=== PATIENT | male | born 1950 | race Caucasian/White ===

== ENCOUNTER 2016-10-19 12:30 | Observation (INO) | payer OTHER ==
[2016-10-19] MEDS ORDERED: Thiamine IV* 100 MG, Folic Acid IV* 1 MG, Multiple Vitamin IV ADULT* 10 ML in NS 0.9% 1... IV ONE (13:09)
[2016-10-19 13:33] LABS: Hematocrit 42 % (42-52); Hemoglobin 14.5 g/dl (14.0-18.0); Mean Corpuscular HGB Conc 34 g/dl (31-36); Mean Corpuscular Hemoglobin 31 pg (27-31); Mean Corpuscular Volume 91 fL (80-94); Mean Platelet Volume 8 um3 (7.4-10.4); Red Blood Count 4.64 10^6/ul (4.0-5.4); Red Cell Distribution Width 13 % (10.5-15); White Blood Count 7.2 10^3/ul (3.5-10.8)
--- NOTE | 2016-10-19 13:41 | RAD ---
Indication: Diplopia for 40 minutes this morning. Now just dizziness. Comparison: No relevant prior exams available on the [facility] PACS for comparison. Technique: Noncontrast CT vertex of skull through foramen magnum. Report: Unremarkable cerebral sulci, ventricles, and basal cisterns for age. Variant persistent cavum septum pellucidum. 3 mm prominent perivascular space at the RIGHT frontal lobe adjacent to the frontal horn of the lateral ventricle. Negative for ornelas matter white matter obscuration, intra or extra-axial hemorrhage, or mass effect. Unremarkable orbital contents. Negative for suspicious calvarial or skull base lesions. Partially visualized mucous retention cyst or polyp in the posterior aspect of the LEFT maxillary sinus. No paranasal sinus fluid levels within the [id number]. Clear mastoid air spaces. Unremarkable scalp. IMPRESSION: No evidence for acute intrathoracic disease.
[2016-10-19 14:20] LABS: Albumin 3.7 g/dL (3.2-5.2); BUN/Creatinine Ratio 15.8 (8-20); Calcium 9.7 mg/dL (8.6-10.3); EGFR Non-African American 79.3 (>60); Globulin 3.2 g/dL (2-4); Potassium 4.1 mmol/L (3.5-5.0); Total Bilirubin 0.5 mg/dL (0.2-1.0); Total Protein 6.9 g/dL (6.4-8.9)
[2016-10-19 14:23] LABS: Urine Bilirubin Negative (Negative); Urine Glucose Negative (Negative); Urine Nitrite Negative (Negative)
[2016-10-19] MEDS ORDERED: Iohexol 350* (CONTRAST) 500 ML MDV IV ONE (14:26)
[2016-10-19 14:28] LABS: TSH (Thyroid Stimulating Horm) 1.17 mcIU/mL (0.34-5.60)
--- NOTE | 2016-10-19 15:30 | RAD ---
HISTORY: Diplopia COMPARISONS: Head CT dated October 19, 2016 TECHNIQUE: Multiple contiguous axial CT scans were obtained of the head and neck After the administration of nonionic intravenous contrast timed to the systemic arterial phase of contrast enhancement. Coronal and sagittal multiplanar reformations are submitted for review. Multiple 3-D maximum intensity projection reconstructions are also submitted for review. FINDINGS: CTA NECK: AORTIC ARCH: There is a normal three-vessel branching pattern of the aortic arch. There is no ostial or proximal stenosis of the cephalic great vessels. RIGHT VERTEBRAL ARTERY: The right vertebral artery is patent along its course, without stenosis. LEFT VERTEBRAL ARTERY: The left vertebral artery is patent along its course, without stenosis. DOMINANCE: The vertebral arteries are codominant. RIGHT COMMON CAROTID ARTERY: The right common carotid artery is patent. The right carotid bifurcation occurs at C4-C5 RIGHT INTERNAL CAROTID ARTERY: There is atheromatous disease of the right carotid bifurcation, without right internal carotid artery stenosis by NASCET criteria. RIGHT EXTERNAL CAROTID ARTERY: The right external carotid artery is unremarkable. LEFT COMMON CAROTID ARTERY: The left common carotid artery is patent. The left carotid bifurcation occurs at C4-C5 LEFT INTERNAL CAROTID ARTERY: There is atheromatous disease of the left carotid bifurcation, without left internal carotid artery stenosis by NASCET criteria. LEFT EXTERNAL CAROTID ARTERY: The left external carotid artery is unremarkable. VENOUS CIRCULATION: The venous system is unremarkable. SALIVARY GLANDS: The parotid glands, submandibular glands, sublingual glands are normal. NASAL CAVITY/NASOPHARYNX: The nasal cavity and nasopharynx are normal. ORAL CAVITY/OROPHARYNX: The oral cavity is obscured by streak artifact from dental amalgam. The visualized oral cavity and oropharynx are unremarkable. LARYNGEAL APPARATUS/HYPOPHARYNX: The laryngeal apparatus and hypopharynx are normal. UPPER AIRWAY/UPPER ESOPHAGUS: The visualized upper airway and esophagus are normal. LUNG APICES: The lung apices are clear. THYROID GLAND: There is a 1.6 cm right thyroid nodule LYMPH NODES: There is no lymphadenopathy by size criteria. BONES AND SOFT TISSUES: Degenerative changes are noted CTA HEAD: INTRACRANIAL CIRCULATION: There is no aneurysm, vascular malformation, occlusion, or stenosis of the visualized intracranial circulation. The anterior communicating artery complex is clear. Bilateral posterior communicating arteries are identified. VENOUS CIRCULATION: The venous system is unremarkable. PERFUSION: There is no obvious parenchymal perfusion deficit. HEMORRHAGE/INFARCT: There is no hemorrhage or acute infarct. MASSES/SHIFT: There is no mass or shift. EXTRA-AXIAL SPACES: There are no extra-axial fluid collections. SULCI AND VENTRICLES: The sulci and ventricles are normal in size and position for the patient's stated age. CEREBRUM: There are no focal parenchymal abnormalities. BRAINSTEM: There are no focal parenchymal abnormalities. CEREBELLUM: There are no focal parenchymal abnormalities. PARANASAL SINUSES: The paranasal sinuses are clear. ORBITS: The orbits are unremarkable. BONES AND SOFT TISSUE: No bone or soft tissue abnormalities are noted. OTHER: There is no abnormal enhancement. IMPRESSION: 1. NO INTERNAL CAROTID ARTERY STENOSIS BY NASCET CRITERIA. 2. NO ANEURYSM, VASCULAR MALFORMATION, OCCLUSION, OR STENOSIS OF THE VISUALIZED INTRACRANIAL CIRCULATION.. 3. RIGHT THYROID NODULE. RECOMMEND CONSIDERATION OF CORRELATION WITH DEDICATED IMAGING OF THE THYROID IN THE NONACUTE SETTING CPT II Codes: 3100F
[2016-10-19] MEDS ORDERED: Aspirin TAB* 325 MG PO ONE (15:52)
[2016-10-19] MEDS ORDERED: Famotidine TAB* 20 MG PO PRN (16:36)
[2016-10-19] MEDS ORDERED: Zolpidem TAB* 5 MG PO PRN (16:36)
[2016-10-19] MEDS ORDERED: NS 0.9% 1000 ML* 1,000 ML IV SCH (17:00)
[2016-10-19 17:56] LABS: Erythrocyte Sed Rate 27 mm/Hr (0-40)
--- NOTE | 2016-10-19 18:59 | RAD ---
Indication: Transient ischemic attack. Sagittal and axial T1, axial T2, FLAIR, diffusion and susceptibility weighted images of the brain were obtained. Ventricular structures are midline. No midline shift is noted. There is central and cortical atrophy noted. There is a cavum septum interpositum noted. No restriction of diffusion is identified. FLAIR images demonstrates periventricular signal abnormalities consistent with chronic ischemic White matter change. There is no evidence of intracranial mass or hemorrhage. No other high or low density lesions are identified. IMPRESSION: CHRONIC ISCHEMIC WHITE MATTER CHANGE. NO INTRACRANIAL MASS OR HEMORRHAGE IS NOTED. NO ACUTE INFARCT IS NOTED.
--- NOTE | 2016-10-19 20:49 | CONS ---
NEUROLOGY CONSULTATION: DATE OF CONSULT: 10/19/16 REFERRING PHYSICIAN: Dr. Feliz. PRIMARY CARE PROVIDER: Dr. Malone. CHIEF COMPLAINT: Double vision. HISTORY OF PRESENT ILLNESS: Gilmer Coelho is a 66-year-old right-handed [facility], who was in his usual state of health today about 10 a.m. looking at his computer in his office. He realized he could not read what was on it. Things seemed to be jumbled, they were double. He got up and went to the bathroom and then to the faculty lounge, but the double vision did not resolve. It was side- by-side and people had "2 heads." He decided that he would go home and he went out to the parking lot, on his way there again, everybody he looked at seemed to be double. Again, it seemed [id number]. By the time, he got to the car, it seemed to have resolved, lasted anywhere from 20 to 30 minutes. He noticed a "water like" scotoma to the left of his visual field. That lasted about 5 or 10 minutes and went away. At that point, he drove home. He did not have any headache other than some persistent occipital and nuchal neck pain, which he has had for months. He has felt fine since that episode. There is no prior history of double vision, cerebrovascular disease, or transient ischemic attacks. PAST MEDICAL HISTORY: Notable for hyperlipidemia and intolerance to statins. He has had pretty severe muscular leg pain and then had a more recent retrial with Crestor and developed pain of his thoracic muscles. He had an elevated CPK a couple of weeks ago when Crestor was stopped about 16 days ago. 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 MEDICATIONS: At home consist of: 1. Ranitidine 150 mg p.o. q. day. 2. Glucosamine chondroitin. 3. Alfuzosin. ALLERGIES: He is allergic to SULFA, which caused a rash; intolerant to statins , which caused myalgias and elevated CPKs. FAMILY HISTORY: Notable for mother suffering a stroke, father at age 39 of an [place]. SOCIAL HISTORY: He is a nonsmoker, drinks red wine daily. He lifts weights on a regular basis. REVIEW OF SYSTEMS: Negative for recent illnesses. No problems with numbness in his limbs or face. No history of migraines, but he does have history of neck pain and stiffness, which he attributes to when he developed severe myalgias with the statins. No intestinal problems or recent weight loss. No recent fevers or illnesses. PHYSICAL EXAM: He is well nourished and well hydrated. Temperature 97.4 temporally, blood pressure running about 120 to 140 systolic over 60 to 74 diastolic. Heart rate is about 70 and sinus on the monitor, respiratory rate 14 , and oxygen saturation is 98% on room air. Skin is warm and dry. Neck is supple, but there is limited rotation bilaterally. Heart is in a regular rate and rhythm without murmurs. Carotid pulses are symmetrical and there are no anterior or posterior cervical bruits. Lungs are clear to auscultation bilaterally. On motor exam, pupils are unequal with the right being about 6 mm, 4 mm o the left in dark room light, both constricting to about 2.5 mm. There is a mild ptosis of the left eye, which appears fixed. Eye movements are normal and there is no nystagmus. Visual fernández are full to confrontation. Funduscopic exam is normal and I do not see any embolic phenomena. Facial musculature is intact and symmetric and facial sensation to light touch and temperature is symmetric. Palate and tongue appear normal and there is no dysarthria. Hearing is intact. Neck strength is intact. Motor exam reveals muscle tone and strength proximally and distally in upper and lower extremities. There is no pronator drift. Alyttz-pu-ehbw maneuver and finger taps are normal bilaterally. Vbxi-kl-awop maneuver is normal bilaterally. Sensory exam in the limbs is intact to temperature, vibration, light touch. Romberg sign is absent. Gait and station are normal. Tandem gait is normal. He is alert and oriented and an excellent detailed historian. Memory is intact and language is fluent. He has good attention, concentration, and fund of knowledge. DIAGNOSTIC STUDIES/LAB DATA: Includes CT scan of the brain, which I reviewed the images and is interpreted as normal. CT angiogram of the brain was also obtained and I reviewed that and that is interpreted as normal as well. He does have a cavum septum pellucidum. Other laboratory data includes a normal CBC, normal chemistry profile other than nonfasting glucose of 109. INR is 0.99. IMPRESSION AND PLAN: Impression is that of about 30 minutes of horizontal diplopia worrisome for brain stem transient ischemic attack. 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 I think he should be admitted to the hospital for TIA workup. Specifically, I think he should have an MRI of the brain, an echocardiogram, and telemetry for at least overnight. Recommend starting aspirin therapy today. I discussed with Dr. Feliz asking him to initiate the first aspirin. Fasting lipid profile should be ordered for the morning. Currently, his blood pressure is in a good range and I would not recommend any alterations acutely. Further recommendations will depend on his hospital course and the results of his studies. [id number]/[facility] #: [id number] BRANDI
--- NOTE | 2016-10-19 21:23 | HP ---
AMENDED REPORT NOW INCLUDES COSIGNER DESIGNATION - ESIGNED BEFORE ADJUSTMENT CC: Sami Stern MD * ADMISSION HISTORY AND PHYSICAL: DATE OF ADMISSION: 10/19/16 PRIMARY CARE DOCTOR: Sami Stern MD. MY ATTENDING WHILE IN THE HOSPITAL: Anish Carney MD * (iDICTATED BY CIPRIANO MANNING) CHIEF COMPLAINT: Double vision for half an hour. HISTORY OF PRESENT ILLNESS: The patient states that at about 10:10 this morning , he had an episode of horizontal diplopia with some dizziness and walking into doorways. The patient is unsure if dizziness is independent of the diplopia or caused by it. This lasted about 30 minutes and then cleared up, but afterwards the patient states that there was scotoma in his right visual field similar to water shimmering. The patient states he has normal morning headaches with neck stiffness and decreased range of motion every day and he had one of those headaches today. Patient denies any different or additional headaches. The patient states that he has been fatigued for 3 days. The patient denies fevers , chills, or sick contacts. The patient started taking ferrous gluconate 3 days ago because he was not feeling well. The patient denies any word finding difficulties, but states it was awkward when he was speaking to people, but states that it could be because he was perceiving 2 heads for those people. The patient states he was nauseous with diplopia. PAST MEDICAL HISTORY: 1. Hyperlipidemia. 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 PAST SURGICAL HISTORY: Removal of aforementioned tumor in 1997. MEDICATIONS: 1. Zolpidem 5 mg as needed for insomnia. The patient states he takes this 3 times a week. 2. Ranitidine 150 mg as needed for heartburn. The patient states he takes this occasionally. 3. Glucosamine and chondroitin vitamin C 1 tab p.o. daily. 4. Ferrous gluconate 1 tab p.o. daily. ALLERGIES: SULFA ANTIBIOTICS. FAMILY HISTORY: The patient's father, mother and maternal grandfather all had myocardial infarctions. The patient's mother had AFib with a pacemaker implant. The patient's brother had hypertension, hyperlipidemia. The patient's paternal grandfather had cirrhosis from longtime drinking. SOCIAL HISTORY: The patient has a remote history of smoking, he quit in the 80s , cannot quantify pack-year history. The patient drinks 750 mL of red wine daily and this has been going on for a "long time." The patient denies any illicit drug use. 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 The patient is for 44 years, lives with his who wants to be his healthcare proxy. The patient has 4 children. REVIEW OF SYSTEMS: The patient denies vomiting. The patient denies chest pain , shortness of breath, palpitations, swelling of the legs, abdominal pain, change in urination. The patient states that he has arthritis all over his body , particularly in his spine. The patient states he has been under more stress than normal recently. PHYSICAL EXAMINATION GENERAL: The patient is a 66-year-old male who is in excellent physical condition who appears stated age and sitting comfortably on the stretcher in the ED. VITAL SIGNS: Blood pressure 147/98, heart rate 63, temperature 97.4, respiratory rate 13, oxygen saturation 96% on room air. HEENT: Head nontraumatic, normocephalic. Sclerae anicteric. Pharynx: Nonerythematous. Mucosa moist. NECK: Supple. No lymphadenopathy. Range of motion to 90 degrees, both left and right rotation. RESPIRATORY: Lungs clear to auscultation bilaterally. No wheezes, rales, or rhonchi. Good air exchange bilaterally. CARDIAC: Regular rate and rhythm. S1, S2 present. No clicks, murmurs, gallops , or rubs. Radial dorsalis pedis and posterior tibial pulses all +2 bilaterally. ABDOMEN: Soft, nontender, nondistended. Bowel sounds present in all 4 quadrants. No abdominal bruits heard. No hepatosplenomegaly. GENITOURINARY: No CVA tenderness. No suprapubic tenderness. NEURO: Cranial nerves II through XII intact. Distal and proximal strength 5/5 bilaterally in the upper and lower extremities. Sensation to light touch intact without extinction. Hvrndw-ml-cmev, glpd-ef-umbm and rapid alternating movements all normal. Normal gait. Reflexes 1+ in the bilateral biceps and quadriceps tendon. LABORATORY DATA/DIAGNOSTIC STUDIES: White blood cell 7.2, hemoglobin 14.5, hematocrit 42. INR 0.99. Sodium 135, potassium 4.1, chloride 102, carbon dioxide 26, creatinine 0.95, BUN 15, glucose 109, lactic acid 0.9, troponin 0.00. Urine: Benign findings. Head CTA: No internal carotid artery stenosis. No aneurysm, vascular malformation, occlusion or stenosis. Thyroid nodule indicates dedicated imaging in a nonacute setting. Brain CT: No evidence of acute intracranial disease. EKG: Normal sinus rhythm with a type 1 A-V block. No ischemia noted. IMPRESSION: The patient is a 66-year-old healthy male with 30 minutes of horizontal diplopia earlier today, possible transient ischemic attack. We will admit for telemetry monitoring and analysis of risk factors. 1. Horizontal diplopia, possible transient ischemic attack: The patient has hyperlipidemia and is intolerant of statins. We will do brain MRI to assess for brainstem ischemia. We will do an ESR and Lyme panel to rule out other causes of gallbladder dysfunction such as infiltrative process. We will repeat lipid panel in the morning and get a transthoracic echocardiogram tonight to assess for predisposition for atrial fibrillation. 2. Hyperlipidemia. The patient is statin intolerant, would consider alternative therapy outpatient. 3. Alcohol abuse: Started on [facility] protocol for possible alcohol withdrawal. 3. DVT prophylaxis. The patient is at moderate risk and fully ambulatory. We will order SCDs while in bed. 4. FEN. Heart healthy diet. Caffeine okay. Normal saline at 75 mL an hour. 5. Code status: Full code. The patient would like the healthcare proxy to be his , Donnell Coelho. 6. Disposition: The patient is admitted OBV. TIME SPENT: Approximately 40 minutes were spent on this admission, 20 of which was spent kjyk-jv-dqow with the patient obtaining history and physical. This case has been discussed with my attending, Dr. Carney, and he is in agreement with this plan. CIPRIANO MANNING [id number]/[facility] #: [id number] BRANDI
[2016-10-20] MEDS ORDERED: Aspirin TAB* 325 MG PO SCH (09:00)
--- NOTE | 2016-10-20 10:14 | CONS ---
CC: Dr. Stern NEUROLOGY FOLLOWUP NOTE: DATE OF FOLLOWUP: 10/20/16 LOCATION: He is an inpatient in room 439. CHIEF COMPLAINT: Double vision. INTERVAL HISTORY: Since yesterday, Gilmer felt well. He has not had any recurrences of double vision or any other neurological symptoms. He has persistent neck stiffness but nothing else and nothing going on for months. His laboratory studies have all been unremarkable including TSH. His cholesterol is elevated at 259 and LDL 181. MEDICATIONS: Medications reviewed. He is on, 1. Aspirin, which he received 325 mg yesterday. 2. Ambien 5 mg p.o. q.h.s. p.r.n. insomnia. 3. Famotidine 20 mg p.o. daily. PHYSICAL EXAMINATION: He has been afebrile throughout his hospital stay. Most recent blood pressur e 150/82. Gilmer was otherwise not examined. DIAGNOSTIC STUDIES/LAB DATA: Reviewing laboratory studies today, he has had a negative CT angiogram of the head and neck and a negative CT of the brain. I have reviewed his MR images and there are a few punctate white matter lesions consistent with chronic ischemic changes but are nonspecific. Th ere is no diffusion abnormalities to suggest acute infarction including a close look at the brain st em. He had an echocardiogram earlier today and the report is pending. IMPRESSION: Brain stem transient ischemic attack. I would recommend he remain on aspirin 81 mg per day at discharge. If his echocardiogram in telemetry remains normal, then he could go home. Recom mended a 30-day outpatient cardiac nurse specialist to look for intermittent atrial fibrillation. He has bee n intolerant of statins, and I will ask Dr. Stern if there is anything that might be worth trying to address his hyperlipidemia further. He will be seen in my office in followup in a few weeks if noth ing develops from a cardiac perspective between now and discharge. [id number]/[facility] #: [id number]
--- NOTE | 2016-10-20 10:43 | ECHO ---
Patient: SANTA CHENG [facility] Rec#: [id number] : 1950 Date: 10/20/2016 Age: 66y Height: 167.6 cm / 66.0 in Weight: 82.6 kg / 182.1 lbs Sex: M BSA: 1.9 Room#: 439 Admit Date#: 10/19/2016 Type: Inpatient Referring: Connor Hassan MD Reading: Eugenie Parrish MD Cement Mason Helper: Sharron Elliott RN RDCS CC: Sami Stern MD Transthoracic Echocardiogram Indication: TIA BP: 131/82 HR: 62 Rhythm: NSR with PACs Findings History: HLD, paraganglionic tumor of carotid bifurcation, ETOH use, former smoker Technical Comments: The study quality is fair. The study is technically limited due to patient body habitus. Completed at 0925. Left Ventricle: The left ventricular chamber size is normal. Mild to moderate concentric left ventricular hypertrophy is observed. Global left ventricular wall motion and contractility are within normal limits. There is normal left ventricular systolic function. The estimated ejection fraction is 55-60%. Normal left ventricular diastolic filling is observed. Left Atrium: The left atrial chamber size is normal. Right Ventricle: The right ventricle wall thickness is mildly increased. The right ventricular cavity size is normal. The right ventricular global systolic function is normal. Right Atrium: The right atrial cavity size is normal. The interatrial septum appears lipomatous. Aortic Valve: The aortic valve is trileaflet. The aortic valve leaflets are mildly thickened. There is a trace of aortic regurgitation. There is no evidence of aortic stenosis. Mitral Valve: Mild mitral annular calcification present. The mitral valve leaflets are mildly thickened. There is mild mitral regurgitation. There is no evidence of mitral stenosis. Tricuspid Valve: The tricuspid valve leaflets are normal. There is trace to mild tricuspid regurgitation. No pulmonary hypertension is noted. There is no tricuspid stenosis. Pulmonic Valve: The pulmonic valve appears normal. There is mild pulmonic regurgitation. There is no pulmonic stenosis. Pericardium: There is no significant pericardial effusion. Aorta: There is mild dilatation of the ascending aorta. There is no dilatation of the aortic arch. The aortic root is normal in size. Pulmonary Artery: The main pulmonary artery appears normal. Venous: The inferior vena cava appears normal in size. There is a greater than 50% respiratory change in the inferior vena cava dimension. Conclusions Mild to moderate concentric left ventricular hypertrophy is observed. There is normal left ventricular systolic function. The estimated ejection fraction is 55-60%. Normal left ventricular diastolic filling is observed. The right ventricular global systolic function is normal. No evidence of intracardiac shunting by color Doppler. There is a trace of aortic regurgitation. There is mild mitral regurgitation. There is trace to mild tricuspid regurgitation. No prior echo to compare. Measurements Name Value Normal Range RVIDd (AP) 2D 2.7 cm (0.9 - 2.6) RVDdMajor (2D) 3.6 cm (2.2 - 4.4) RVAW (2D) 0.6 cm (0.2 - 0.5) RAd ISD 4CH 4.9 cm (3.4 - 4.9) RA (A4C)W 4 cm (2.9 - 4.6) IVSd (2D) 1.5 cm (0.6 - 1) LVPWd (2D) 1.3 cm (0.6 - 1) LVIDd (2D) 4.5 cm (3.6 - 5.4) LVIDs (2D) 3.1 cm - LV FS (2D) 32 % (25 - 45) Aortic Annulus 2.2 cm (1.4 - 2.6) Ao root diameter (2D) 3.3 cm (2.1 - 3.5) Ascending Ao 3.8 cm (2.1 - 3.4) Aortic arch 2.6 cm (1.8 - 3.4) LA dimension (AP) 2D 3.3 cm (2.3 - 3.8) LAd ISD 4CH 4.7 cm (2.9 - 5.3) LA ISD 4CH W 4.3 cm (2.5 - 4.5) Name Value Normal Range LA ESV SP 4CH (A/L) 53 ml - LA ESV SP 2CH (A/L) 52 ml - LA ESV BP (A/L) 55 ml - LA ESV BP (A/L) index 28.7 ml/m2 - LA ESV SP 4CH (MOD) 48 ml - LA ESV SP 2CH (MOD) 49 ml - Name Value Normal Range MV E-wave Vmax 1 m/sec - MV deceleration time 158 msec - MV A-wave Vmax 0.59 m/sec - MV E:A ratio 1.8 ratio - LV septal e' Vmax 0.1 m/sec - LV lateral e' Vmax 0.1 m/sec - LV E:e' septal ratio 10 ratio - LV E:e' lateral ratio 10 ratio - Name Value Normal Range AV Vmax 1.3 m/sec - AV VTI 28.6 cm - AV peak gradient 6.7 mmHg - AV mean gradient 4.7 mmHg - LVOT Vmax 0.84 m/sec - LVOT VTI 18 cm - LVOT peak gradient 2.8 mmHg - LVOT mean gradient 1.7 mmHg - KRISTI Vmax 0.63 m/sec - Name Value Normal Range TR Vmax 2.6 m/sec - TR peak gradient 27 mmHg - RAP 3 mmHg - RVSP 30 mmHg - IVC diameter 1.6 cm - Name Value Normal Range PV Vmax 0.6 m/sec -
[2016-10-20 13:56] VITALS: BP 142/78
--- NOTE | 2016-10-21 06:29 | DS ---
CC: Dr. Sami Stern; Dr. Pierre * DISCHARGE SUMMARY: DATE OF ADMISSION: 10/19/16 DATE OF DISCHARGE: 10/20/16 PRIMARY CARE PROVIDER: Dr. Sami Stern CONSULTING NEUROLOGIST: Dr. Bunny Pierre DISCHARGING PROVIDER: CIPRIANO Atkinson SUPERVISING PHYSICIAN: Dr. Lee Gray * (DICTATED BY CIPRIANO ATKINSON) PRIMARY DISCHARGE DIAGNOSES: 1. Transient ischemic attack. 2. Hypertension. 3. Hyperlipidemia with intolerance of statins. DISCHARGE MEDICATIONS: 1. Aspirin 81 mg p.o. daily. 2. Ferrous gluconate 240 mg p.o. daily. 3. Glucosamine/chondroitin and vitamin C one tablet p.o. daily. 4. Lisinopril 10 mg p.o. daily. 5. Ranitidine 150 mg p.o. daily. 6. Ambien 5 mg p.o. at bedtime. Medication changes: 1. Start aspirin. 2. Start lisinopril. HOSPITAL IMAGIN. CT of the brain shows no acute process. 2. CTA of the head shows no significant carotid stenosis. No aneurysm, AVM, occlusion, or stenosis of the visualized portion of the intracranial circulation. There is a right thyroid nodule measuring approximately 6 mm, requiring further outpatient followup. 3. MRI of the brain demonstrates chronic ischemic white matter changes, but no intracranial mass or hemorrhage noted. No acute infarct. 4. Transthoracic echocardiogram shows [id number] LVH with normal left ventricular ejection fraction of 55% to 60% without significant valvular disease. HOSPITAL COURSE: This is a 66-year-old gentleman with known hyperlipidemia with significant intolerance of statins, who presented to the emergency department after approximately a 30-minute episode of diplopia and dizziness and some visual field disturbance. The patient was at work earlier in the day when he experienced vertical diplopia describing people as having "2 heads." He experienced some dizziness associated with that. No speech changes or weakness or confusion per his report. After resolution of the diplopia, he had several minutes of a right visual field disturbance, where he said that it had a kind of wavy water filled appearance. Symptoms resolved spontaneously and he proceeded to the emergency department for further evaluation. Initial labs including a CBC, comprehensive metabolic panel, troponin, magnesium, and lactic acid were unremarkable. TSH was within normal limits and the urinalysis was normal. Initial CT of the brain showed no acute process and subsequent CTA failed to show any significant stenosis. Neurology was consulted in the emergency department, who recommended admission for likely TIA and further evaluation. The patient underwent MRI of the brain, which demonstrated chronic ischemic white matter changes, but no evidence of acute infarct. He remained asymptomatic throughout his hospital stay. No changes on telemetry. He underwent an echocardiogram, which showed mild-to- moderate LVH, but no significant valvular disease and bubble study was negative. The patient was noted to be vtbr-us-oluydpbrgo hypertensive throughout his hospital stay with systolic pressures measuring between 130 and 155 mmHg. Based on the description of the patient's acute event, this most likely represented a TIA. Given the presence of LVH on echocardiogram, the patient likely has longstanding hypertension and recommended starting an antihypertensive for additional risk reduction for secondary stroke prevention. The patient was also started on aspirin therapy and when discussing his hyperlipidemia treatment history, he reports severe intolerance to at least 3 different statins, he can name atorvastatin and Crestor and is unsure of the third. With each of these, he experienced severe myalgias and at least with the Crestor had documented elevated CPK. The patient had a fasting lipid profile, which demonstrated a total cholesterol of 259 and LDL of 181. Given his LDL being significantly above goal and recent TIA, he may be an appropriate candidate for a PCSK9 inhibitor to reduce his LDL given his obvious statin intolerance. DISPOSITION AND FOLLOWUP PLAN: The patient is being discharged to home with medication changes as outlined above. Recommend close followup with his primary care provider to discuss this hospital stay and also to discuss initiating process for prior authorization for a PCSK9 inhibitor for better lipid control. Dr. Pierre's office will also help to arrange a 30-day event monitor to further evaluate for presence of paroxysmal atrial fibrillation, which may have contributed to his symptoms. The patient was started on lisinopril at the time discharge. The patient was given a lab slip for repeat basic metabolic panel to evaluate potassium and renal function in approximately 1 week, this should be followed up by his primary care provider. CIPRIANO ATKINSON [id number]/[facility] #: [id number] BRANDI
--- NOTE | 2016-10-22 18:04 | ED ---
Angel Pino SooYoung, scribed for Miguel Ngo MD on 10/19/16 at 1246 . Dizziness - HPI Summary HPI Summary: A 66 y/o M presents to ED with dizziness onset approx 1000. Associated sx: double vision and blurriness in both eyes since resolved. Pt was at his office and couldn't read the computer screen because it was too blurry. Vision problems lasted approx 40 minutes. He's unsure if his gait was steady, but notes bumping into a post. He drove home, but his vision was still blurry, described as a "pond of water" in his vision. Pt got home and rested and that helped him. Pt wears glasses. PMHx: high cholesterol, iliopsoas tendonitis, muscle spasms. PCP is Dr. Stern. Stopped taking statin meds on 10/02/[address] Stern's request. Daily ETOH. Non-smoker. - History Of Current Complaint Chief Complaint: EDDizziness Stated Complaint: DOUBLE VISION Time Seen by Provider: 10/19/16 12:44 Hx Obtained From: Patient, Family/Braiding Operator, Medical Records Onset/Duration: Resolved - vision changes Timing: Constant Severity Initially: Moderate Severity Currently: Mild - 2 out of 10 Associated Signs And Symptoms: Positive: Unsteady Gait, Visual Changes - Allergies/Home Medications Allergies/Adverse Reactions: Allergies Allergy/AdvReac Type Severity Reaction Status Date / Time Sulfa Antibiotics Allergy Unknown Verified 10/19/16 12:47 Reaction Details Home Medications: Home Medications Ferrous Gluconate 240 mg PO DAILY 10/19/16 [History Confirmed 10/19/16] Qqwtourbuyx-Rsbywhhfyfx-Ovo C- [Glucosamine Chondroitin] 1 tab PO DAILY [History Confirmed 10/19/16] Ranitidine TAB (NF) [Zantac TAB (NF)] 150 mg PO DAILY PRN 10/19/16 [History Confirmed 10/19/16] PMH/Surg Hx/FS Hx/Imm Hx Previously Healthy: Yes Endocrine/Hematology History: Denies: Hx Diabetes, Hx Thyroid Disease Cardiovascular History: Denies: Hx Hypertension Respiratory History: Denies: Hx Asthma, Hx Chronic Obstructive Pulmonary Disease (COPD), Other Respiratory Problems/Disorders GI History: Denies: Hx Ulcer Musculoskeletal History: Denies: Hx Osteoporosis - Surgical History Surgery Procedure, Year, and Place: carotid artery tumor removed - benign Infectious Disease History: Denies: Hx Clostridium Difficile, Hx Hepatitis, Hx Human Immunodeficiency Virus (HIV), Hx of Known/Suspected MRSA, Hx Shingles, Hx Tuberculosis, Traveled Outside the [place] in Last 30 Days - Family History Known Family History: Positive: Cardiac Disease, Hypertension - mother, younger brother, Diabetes - maternal great grandmother - Social History Occupation: Employed Full-time Lives: With Family Alcohol Use: Occasionally Hx Substance Use: No Substance Use Type: Reports: None Hx Tobacco Use: No Smoking Status (MU): Never Smoked Tobacco Review of Systems Negative: Fever Positive: Blurred Vision, Diplopia Neurological: Other - unsteady gait Psychological: Other - pos: dizziness All Other Systems Reviewed And Are Negative: Yes Physical Exam Triage Information Reviewed: Yes Vital Signs On Initial Exam: Initial Vitals Temp Pulse Resp BP Pulse Ox 97.4 F 78 16 135/92 99 10/19/16 12:31 10/19/16 12:31 10/19/16 12:31 10/19/16 12:31 10/19/16 12:31 Vital Signs Reviewed: Yes Appearance: Positive: Well-Appearing, No Pain Distress Skin: Positive: Warm, Skin Color Reflects Adequate Perfusion, Dry Head/Face: Positive: Normal Head/Face Inspection Eyes: Positive: Normal ENT: Positive: Normal ENT inspection Neck: Positive: Supple, Nontender Respiratory/Lung Sounds: Positive: Clear to Auscultation, Breath Sounds Present Cardiovascular: Positive: RRR Abdomen Description: Positive: Nontender, Soft Bowel Sounds: Positive: Present Musculoskeletal: Positive: Normal Neurological: Positive: Sensory/Motor Intact, Alert, Oriented to Person Place, Time, CN Intact II-III, Reflexes Intact Psychiatric: Positive: Normal, Affect/Mood Appropriate Diagnostics - Vital Signs Vital Signs Temp Pulse Resp BP Pulse Ox 10/19/16 12:31 97.4 F 78 16 135/92 99 - Laboratory Lab Results: Lab Results 10/19/16 10/19/16 10/19/16 Range/Units 13:19 13:19 13:19 WBC 7.2 (3.5-10.8) 10^3/ul RBC 4.64 (4.0-5.4) 10^6/ul Hgb 14.5 (14.0-18.0) g/dl Hct 42 (42-52) % MCV 91 (80-94) fL MCH 31 (27-31) pg MCHC 34 (31-36) g/dl RDW 13 (10.5-15) % Plt Count 287 (150-450) 10^3/ul MPV 8 (7.4-10.4) um3 Neut % (Auto) 74.5 (38-83) % Lymph % (Auto) 17.5 L (25-47) % Long % (Auto) 5.9 (1-9) % Eos % (Auto) 0.7 (0-6) % Baso % (Auto) 1.4 (0-2) % Absolute Neuts (auto) 5.3 (1.5-7.7) 10^3/ul Absolute Lymphs (auto) 1.3 (1.0-4.8) 10^3/ul Absolute Monos (auto) 0.4 (0-0.8) 10^3/ul Absolute Eos (auto) 0 (0-0.6) 10^3/ul Absolute Basos (auto) 0.1 (0-0.2) 10^3/ul Absolute Nucleated RBC 0 10^3/ul Nucleated RBC % 0 ESR 27 (0-40) mm/Hr INR (Anticoag Therapy) 0.99 (0.89-1.11) Sodium 135 (133-145) mmol/L Potassium 4.1 (3.5-5.0) mmol/L Chloride 102 (101-111) mmol/L Carbon Dioxide 26 (22-32) mmol/L Anion Gap 7 (2-11) mmol/L BUN 15 (6-24) mg/dL Creatinine 0.95 (0.67-1.17) mg/dL Est GFR ( Amer) 102.0 (>60) Est GFR (Non-Af Amer) 79.3 (>60) BUN/Creatinine Ratio 15.8 (8-20) Glucose 109 H (70-100) mg/dL Lactic Acid (0.5-2.0) mmol/L Calcium 9.7 (8.6-10.3) mg/dL Magnesium 2.0 (1.9-2.7) mg/dL Total Bilirubin 0.50 (0.2-1.0) mg/dL AST 16 (13-39) U/L ALT 17 (7-52) U/L Alkaline Phosphatase 60 (34-104) U/L Troponin I 0.00 (<0.04) ng/mL Total Protein 6.9 (6.4-8.9) g/dL Albumin 3.7 (3.2-5.2) g/dL Globulin 3.2 (2-4) g/dL Albumin/Globulin Ratio 1.2 (1-3) TSH 1.17 (0.34-5.60) mcIU/mL Urine Color Urine Appearance Urine pH (5-9) Ur Specific Crescent (1.010-1.030) Urine Protein (Negative) Urine Ketones (Negative) Urine Blood (Negative) Urine Nitrate (Negative) Urine Bilirubin (Negative) Urine Urobilinogen (Negative) Ur Leukocyte Esterase (Negative) Urine Glucose (Negative) Lyme Disease Serology (Negative) 10/19/16 10/19/16 10/19/16 Range/Units 13:19 13:19 13:45 WBC (3.5-10.8) 10^3/ul RBC (4.0-5.4) 10^6/ul Hgb (14.0-18.0) g/dl Hct (42-52) % MCV (80-94) fL MCH (27-31) pg MCHC (31-36) g/dl RDW (10.5-15) % Plt Count (150-450) 10^3/ul MPV (7.4-10.4) um3 Neut % (Auto) (38-83) % Lymph % (Auto) (25-47) % Long % (Auto) (1-9) % Eos % (Auto) (0-6) % Baso % (Auto) (0-2) % Absolute Neuts (auto) (1.5-7.7) 10^3/ul Absolute Lymphs (auto) (1.0-4.8) 10^3/ul Absolute Monos (auto) (0-0.8) 10^3/ul Absolute Eos (auto) (0-0.6) 10^3/ul Absolute Basos (auto) (0-0.2) 10^3/ul Absolute Nucleated RBC 10^3/ul Nucleated RBC % ESR (0-40) mm/Hr INR (Anticoag Therapy) (0.89-1.11) Sodium (133-145) mmol/L Potassium (3.5-5.0) mmol/L Chloride (101-111) mmol/L Carbon Dioxide (22-32) mmol/L Anion Gap (2-11) mmol/L BUN (6-24) mg/dL Creatinine (0.67-1.17) mg/dL Est GFR ( Amer) (>60) Est GFR (Non-Af Amer) (>60) BUN/Creatinine Ratio (8-20) Glucose (70-100) mg/dL Lactic Acid 0.9 (0.5-2.0) mmol/L Calcium (8.6-10.3) mg/dL Magnesium (1.9-2.7) mg/dL Total Bilirubin (0.2-1.0) mg/dL AST (13-39) U/L ALT (7-52) U/L Alkaline Phosphatase (34-104) U/L Troponin I (<0.04) ng/mL Total Protein (6.4-8.9) g/dL Albumin (3.2-5.2) g/dL Globulin (2-4) g/dL Albumin/Globulin Ratio (1-3) TSH (0.34-5.60) mcIU/mL Urine Color Straw Urine Appearance Clear Urine pH 7.0 (5-9) Ur Specific Crescent 1.006 L (1.010-1.030) Urine Protein Negative (Negative) Urine Ketones Negative (Negative) Urine Blood Negative (Negative) Urine Nitrate Negative (Negative) Urine Bilirubin Negative (Negative) Urine Urobilinogen Negative (Negative) Ur Leukocyte Esterase Negative (Negative) Urine Glucose Negative (Negative) Lyme Disease Serology Negative (Negative) Result Diagrams: 10/19/16 13:19 10/19/16 13:19 Lab Statement: Any lab studies that have been ordered have been reviewed, and results considered in the medical decision making process. - CT BRAIN CT CT Interpretation: No Acute Changes - IMPRESSION: No evidence for acute intrathoracic dz. ED physician has reviewed this radiology report and agrees. CT Interpretation Completed By: Radiologist - EKG 1333 Cardiac Rate: NL - 71bpm EKG Rhythm: 1st Degree HB Dizzy Course/Dx - Course Course Of Treatment: Mr. Coelho had a transient episode of diplopia and gait problems. He has had a negative initial W/U and is being seen by Dr. Pierre. I suspect he will need to be admitted for further W/U. - Diagnoses Provider Diagnoses: TIA (transient ischemic attack) - Provider Notifications Discussed Care Of Patient With: Bunny Pierre - neuro Time Discussed With Above Provider: 13:58 Instructed by Provider To: MD Will See In ED Discharge - Discharge Plan Condition: Stable Disposition: OTHER Discharge Disposition Comment: SO to Dr. Feliz at shift change, pending CTA result, consult with hospit The documentation as recorded by the Angel bruno SooYoung accurately reflects the service I personally performed and the decisions made by me, Miguel Ngo MD.
== END 2016-10-20 14:28 | disposition home or self-care (01) ==
LOC: ED 12:30 → MEDTELE 15:45
PROVIDERS: ADMIT Internal Medicine; ATTEND Internal Medicine
DX: G45.9 Transient cerebral ischemic attack, unspecified (principal); I10 Essential (primary) hypertension; E78.5 Hyperlipidemia, unspecified; I51.7 Cardiomegaly; H53.2 Diplopia; R42 Dizziness and giddiness; I67.82 Cerebral ischemia
CPT/HCPCS: 36415; 70450; 70496; 70498; 70551; 80053; 80061; 81003; 83605; 83735; 84443; 84484; 85025; 85610; 85652; 86618; 93005; 93306; 99284; A9270-GY; G0378; J3411; Q9967

== ENCOUNTER 2017-06-07 05:06 | Emergency (ER) | payer OTHER ==
[2017-06-07] MEDS ORDERED: Ketorolac INJ* 30 MG/ML 1 ML VIAL IV PUSH ONE (05:28)
[2017-06-07] MEDS ORDERED: NS 0.9% 1000 ML* 1,000 ML IV ONE (05:29)
[2017-06-07 05:54] LABS: ABS Basophils 0.1 10^3/ul (0-0.2); ABS Eosinophils 0.2 10^3/ul (0-0.6); ABS Lymphocytes 1.6 10^3/ul (1.0-4.8); ABS Monocytes 0.7 10^3/ul (0-0.8); ABS Neutrophils 5.3 10^3/ul (1.5-7.7); ABS Nucleated RBC 0 10^3/ul; Eosinophil % 2.6 % (0-6); Hematocrit 36 % (42-52); Hemoglobin 11.8 g/dl (14.0-18.0); Lymphocyte % 19.9 % (25-47); Mean Corpuscular HGB Conc 33 g/dl (31-36); Mean Corpuscular Hemoglobin 28 pg (27-31); Mean Corpuscular Volume 86 fL (80-94); Mean Platelet Volume 7.1 um3 (7.4-10.4); Nucleated Red Blood Cells % 0; Platelet Count 358 10^3/ul (150-450); Red Blood Count 4.17 10^6/ul (4.0-5.4); Red Cell Distribution Width 15 % (10.5-15); White Blood Count 7.9 10^3/ul (3.5-10.8)
--- OUTSIDE RECORDS SUMMARY | 2017-06-07 06:09 | XMS REPORT ---
:1950 External Reference #:[id number] Author Organization [facility] [employer] Address [address] [place] [address] Phone [phone] Care Team Providers Name Role Phone Eric Stern M.D. Primary Care Physician Unavailable Payers Type Date Identification Numbers Payment Provider Subscriber Commercial Policy Number: [id number] [employer] Ppo/Pos/Epo/Nap Gilmer Coelho PayID: [id number] [address] [place] [address] Problems Date Description Provider Status Onset: H/O: hypertension Active Onset: Polymyalgia rheumatica Active Onset: 05/19/2017 Pinguecula Jade Sadler O.D. Active Onset: 05/19/2017 Conjunctival hemorrhage Jade Sadler O.D. 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 Folic Acid Active Tablets 1mg Unknown 000 Ketoconazole Active Shampoo 2% apply Unknown 000 topically to Scalp, Eyebrows, And Jean daily for 14 days Prednisone 0 Active Tablets 5mg take 1 and Unknown 000 1/2 tablets by mouth once daily for 3 weeks then 1 tab... Methotrexate Active Tablets 2.5mg Take 5 Unknown 000 Tablets By Mouth Once A Week On Fridays Glucosamine Active Capsules 1500Com Unknown Chondroitin 000 1500 Complex Results Description No Information Procedures Description No Information Plan of Care 05/19/2017 - Jade Sadler O.D.H11.31 Conjunctival hemorrhage, right eyeComments:A conjunctival hemorrhage is a broken blood vessel on the surface of your eye usually caused by dryness or straining. It is like a bruise and it is not harmful. If the eye is uncomfortable at all, we recommend you use tear drops.Follow up:2 [id number] Pinguecula, bilateralComments:Smoking can increase the risk of developing or worsening any eye related disease, as well as affect your overall health. If you are a smoker, we strongly recommend that you quit.If you are not a smoker, we strongly recommend that you do not start.
--- OUTSIDE RECORDS SUMMARY | 2017-06-07 06:09 | XMS REPORT ---
:1950 External Reference #:[id number] Author Organization [facility] Address [address] [address] Phone [phone] Care Team Providers Name Role Phone Robinson Malone MD Care Team Information Starch Crab Unavailable Sami Stern MD Primary Care Physician Unavailable Payers Type Date Identification Numbers Payment Provider Subscriber Commercial Effective: Policy Number: [id number] [employer] [place] 2015 Group Number: [id number] [id number] PayID: [id number] [place] [address] Problems Date Description Provider Status Onset: 04/21/2017 Polymyalgia rheumatica Sue Dubois M.D.,SUKUMAR Onset: 01/18/2017 H/O: TIA Sue Dubois M.D.,SUKUMAR Onset: 06/02/2015 Localized, primary osteoarthritis Kaylyn Trinidad M.D. Active of the pelvic region and thigh Onset: 10/01/2016 Raised prostate specific antigen Sue Dubois M.D., FACP Onset: 10/01/2016 Mixed hyperlipidemia Sue Dubois M.D.,SUKUMAR Onset: 10/01/2016 Glomus tumor Sue Dubois M.D.,SUKUMAR Note: resected Onset: 10/01/2016 Sleep apnea Sami Stern M.D.,SUKUMAR Active Note: untreated Onset: 10/22/2016 Left ventricular hypertrophy Sami Stern M.D.,SUKUMAR Active Note: on echo, now treated for HTN Onset: 11/30/2016 Major depressive disorder Sami Stern M.D.,FANTASMAP Active Onset: 04/21/2017 Monoclonal gammopathy Sami Stern M.D.,SUKUMAR Active (clinical) Family History Date Family Member(s) Problem(s) Comments General Diabetes GRANDMOTHER General Heart Disease FATHER General Hypertension BROTHER : (age 38 Years) Father due to Heart Disease : (age 87 Years) Mother due to CAD First Son Drug Addiction Siblings 4 First Brother benign tumors in abdomen Social History Type Date Description Comments Marital Status Lives With 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 [employer] History Cigarette Use Former Cigarette Smoker ETOH Use consumed 2-3 glasses of wine per day ETOH Use 04/21/2017 Denies alcohol use Smoking Patient is a former smoker Quit in 1986, smoked 1PPD for 17 years Recreational Drug Use Denies Drug Use Daily Caffeine Green tea 1 per day Exercise Type/Frequency Exercises regularly 5x week General Hx Text 4 kids Allergies, Adverse Reactions, Alerts Date Description Reaction Status Severity Comments 06/02/2015 Sulfa Antibiotics active Medications Medication Date Status Form Strength Qnty SIG Indications Ordering Provider Prednisone 06/02 Active Tablets 2.5mg 180ta Please M79.1 bs take 3 Mariola, tabs by M.D. mouth every day Methotrexate 04/14 Active Tablets 2.5mg 90tab take 7 M35.3 s capsules/t Mariola, ablets by M.D. mouth once weekly on fridays Folic Acid 04/14 Active Tablets 1mg 90tab take one M35.3 s capsule/ta Mariola, blet daily M.D. by mouth Slow Release 02/19 Active Tablets ER 160(50Fe) 90tab take one Iron mg s capsule/ta Mariola, blet daily M.D. by mouth Paregoric 01/18 Active Tincture 2mg/5ML 473ml 2-1 Sami teaspoon Raven Stern by mouth SUKUMAR [place] twice a day as needed Losartan 11/08 Active Tablets 25mg 90tab 1 by mouth R05 s every day Raven Stern M.D.,[facility] Aspirin Adult 10/[address] 81mg 30tab 1 by mouth Other Low Dose /2016 s every day Ordering Provider Glucosamine Active Capsules 1500Com 1 by mouth Unknown Chondroitin 1500 /0000 every day Complex Calcium 1000 + D 00 Active Tablets 1000-400m 1 by mouth Unknown /0000 g-Unit bid Prednisone 04/21 Hx Tablets 5mg 45tab Take one M79.1 s alternatin Raven Stern, - g with two Huan,[facility] 06/02 other day Prednisone 02/22 Hx Tablets 10mg 30tab take 1/2 M79.1 s capsule/nash Garnett - blet daily Huan 04/21 by mouth (Pt. is taking 10 mg x 2 weeks as of 04/14/17) Prednisone 02/15 Hx Tablets 10mg 42tab take 4 M79.1 s tabs by Mariola - mouth Huan 02/22 daily for 3 days then 3 tabs daily for 3 days then 2 tabs for 3 days then 1 tab for 3 days then d/c Meloxicam 01/18 Hx Tablets 7.5mg 60tab 1 by mouth s twice a Raven Stern, - day as Huan,[facility] 02/15 needed Curophen 12/28 Hx qd Mile MD Juanpablo - 01/18 Citalopram 12/01 Hx Tablets 20mg 30tab 1/2 qd for Sami Hydrobromide s 10 days Raven Stern, - then 1 by Huan,[facility] 12/27 every day Zolpidem 10/10 Hx Tablets 10mg 30tab 1/2 to 1 Sami Tartrate s tab by Raven Stren - mouth Huan,[facility] 04/21 night at bedtime as needed (Pt. is not taking) Sertraline HCL 10/10 Hx Tablets 50mg 30tab 1/2 qd for Sami s 10 , then Raven Stern, - 1 by mouth Huan,[facility] 12/01 every day Fluticasone 11/12 Hx Suspension 50mcg/Act 16gm 2 sprays J01.90 Julius Propionate each Torrey, [employer] - nostril 11/29 qd. Amoxicillin/Clav 11/12 Hx Tablets 875-125mg 20tab take one J01.90 Julius ulanate s tablet q12 Torrey, [employer] Potassium - hours for 11/20 10 Eszopiclone 10/22 Hx Tablets 2mg 20tab 1 tab by Sami s mouth Raven Stern, - every M.D.,FACP 11/30 night at bedtime as needed Lisinopril 10/20 Hx Tablets 10mg 30tab 1 by mouth R05 s every day Ordering - Provider 11/08 Paregoric 10/01 Hx Tincture 2mg/5ML 473ml 02/22-1 Sami teaspleo Stern, - by mouth M.DFrancia,FACP 12/27 twice day as needed Oxycodone-Acetam 09/25 Hx Tablets 5-325mg 90tab 1-2 by M16.11 Kamila ino s mouth Bordoni, - every 4-6 [employer] / hours needed for pain. Warfarin Sodium 09/25 Hx Tablets 2mg 60tab 1 tablet 6.11 s by mouth Bordoni, - daily, or [employer] 10/01 dose /warren ruiz nurse service. do not start until after surgery. Docusate Sodium 09/25 Hx Capsules 100mg 60cap 1 by mouth M16.11 s up to 3 Bordoni, - times a [employer] 10/01 day needed for constipati on Cyclobenzaprine Hx Tablets 10mg one by Unknown HCL /0000 mouth - three 09/24 times day as needed spasm Ibuprofen Hx Tablets 600mg 1 by mouth Unknown /0000 three - times a 09/25 day needed Crestor 00 Hx Tablets 10mg 1 by mouth Unknown /0000 every - day--on 11/08 hold for months as of 10/02/16 Zolpidem Hx Tablets 5mg 30tab 1 tab at [facility] /0000 s bedtime as Raven Stern, - needed for Huan,FACP 10/22 Immunizations CPT Code Status Date Vaccine Reaction Lot # 52757 Given 04/14/2017 Pneumonia Vaccine no reaction noted [id number] Given 11/08/2016 Influenza Virus Vaccine, No immediate [id number] Quadrivalent, Split, reaction...jh Preservative Free 24184 Given 10/01/2016 Zoster (Zostavax) [id number] Given 10/01/2016 Pneumococcal Conjugate [id number] Vaccine 13 Valent For Intramuscular Use Vital Signs Date Vital Result Comment 06/02/2017 Height 66 inches 5'6" Weight 184.00 lb Heart Rate 68 /min BP Systolic Sitting 122 mmHg BP Diastolic Sitting 76 mmHg Respiratory Rate 14 /min Pain Level 1 BMI (Body Mass Index) 29.7 kg/m2 04/21/2017 Weight 189.00 lb Heart Rate 70 /min BP Systolic Sitting 142 mmHg BP Diastolic Sitting 76 mmHg Body Temperature 97.7 F O2 % BldC Oximetry 97 % 04/14/2017 Height 66 inches 5'6" Weight 190.00 lb Heart Rate 83 /min BP Systolic Sitting 139 mmHg BP Diastolic Sitting 87 mmHg Respiratory Rate 14 /min Pain Level 3 BMI (Body Mass Index) 30.7 kg/m2 03/08/2017 Height 66 inches 5'6" Weight 192.38 lb with shoes Heart Rate 82 /min BP Systolic Sitting 144 mmHg Lue large cuff BP Diastolic Sitting 88 mmHg Lue large cuff Respiratory Rate 18 /min O2 % BldC Oximetry 96 % On Ra BMI (Body Mass Index) 31.0 kg/m2 03/02/2017 Height 66 inches 5'6" Weight 189.25 lb Heart Rate 72 /min BP Systolic Sitting 144 mmHg BP Diastolic Sitting 84 mmHg Respiratory Rate 14 /min Pain Level 2 BMI (Body Mass Index) 30.5 kg/m2 02/15/2017 Weight 186.00 lb Heart Rate 69 /min BP Systolic Sitting 136 mmHg BP Diastolic Sitting 82 mmHg Respiratory Rate 14 /min 01/18/2017 Weight 181.00 lb Heart Rate 91 /min BP Systolic Sitting 140 mmHg BP Diastolic Sitting 84 mmHg Body Temperature 97.0 F O2 % BldC Oximetry 98 % 12/28/2016 BP Systolic 114 mmHg BP Diastolic 80 mmHg 12/28/2016 Height 66 inches 5'6" Weight 184.00 lb Heart Rate 80 /min BP Systolic Sitting 132 mmHg BP Diastolic Sitting 96 mmHg Respiratory Rate 14 /min O2 % BldC Oximetry 80 % BMI (Body Mass Index) 29.7 kg/m2 Neck Circumference in inches 16.75 11/30/2016 Weight 179.00 lb Heart Rate 84 /min BP Systolic Sitting 148 mmHg BP Diastolic Sitting 84 mmHg BP Systolic Recheck 132 mmHg BP Diastolic Recheck 84 mmHg Body Temperature 97.8 F O2 % BldC Oximetry 99 % 11/12/2016 Heart Rate 80 /min BP Systolic Sitting 116 mmHg BP Diastolic Sitting 70 mmHg Body Temperature 97.8 F O2 % BldC Oximetry 98 % 11/08/2016 Weight 180.00 lb Heart Rate 88 /min BP Systolic Sitting 110 mmHg BP Diastolic Sitting 76 mmHg Respiratory Rate 17 /min Body Temperature 98.0 F O2 % BldC Oximetry 97 % 10/22/2016 Weight 182.00 lb Heart Rate 88 /min BP Systolic Sitting 124 mmHg BP Diastolic Sitting 70 mmHg Body Temperature 98.2 F O2 % BldC Oximetry 98 % 10/01/2016 Height 66 inches 5'6" Weight 183.00 lb Heart Rate 79 /min BP Systolic Sitting 146 mmHg BP Diastolic Sitting 72 mmHg Body Temperature 98.2 F O2 % BldC Oximetry 98 % BMI (Body Mass Index) 29.5 kg/m2 09/26/2015 Height 66 inches 5'6" Weight 182.00 lb Heart Rate 76 /min BP Systolic 129 mmHg BP Diastolic 72 mmHg BMI (Body Mass Index) 29.4 kg/m2 09/15/2015 Height 66 inches 5'6" Weight 182.00 lb Pain Level 2 to a 9 varies BMI (Body Mass Index) 29.4 kg/m2 07/04/2015 Height 66 inches 5'6" Weight 182.00 lb Heart Rate 83 /min BP Systolic 130 mmHg BP Diastolic 77 mmHg BMI (Body Mass Index) 29.4 kg/m2 06/02/2015 Height 66 inches 5'6" Weight 182.00 lb BP Systolic 128 mmHg BP Diastolic 82 mmHg Pain Level 5 BMI (Body Mass Index) 29.4 kg/m2 Results Test Date Test Result H/L Range Note Laboratory test 05/26/2017 Erythrocyte Sed Rate 65 mm/Hr High 0-40 1, 2 finding Laboratory test 05/26/2017 C Reactive Protein 27.41 mg/L High < 5.00 1 , 3 finding CBC Auto Diff 05/26/2017 White Blood Count 8.9 10^3/uL 3.5-10.8 1 Red Blood Count 4.33 10^6/uL 4.0-5.4 1 Hemoglobin 12.4 g/dL Low 14.0-18.0 1 Hematocrit 37 % Low 42-52 1 Mean Corpuscular Volume 86 fL 80-94 1 Mean Corpuscular Hemoglobin 29 pg 27-31 1 Mean Corpuscular HGB Conc 33 g/dL 31-36 1 Red Cell Distribution Width 14 % 10.5-15 1 Platelet Count 417 10^3/uL 150-450 1 Mean Platelet Volume 7.6 um3 7.4-10.4 1 Abs Neutrophils 7.2 10^3/uL 1.5-7.7 1 Abs Lymphocytes 1.0 10^3/uL 1.0-4.8 1 Abs Monocytes 0.5 10^3/uL 0-0.8 1 Abs Eosinophils 0.1 10^3/uL 0-0.6 1 Abs Basophils 0.1 10^3/uL 0-0.2 1 Abs Nucleated RBC 0 10^3/uL 1 Granulocyte % 80.4 % 38-83 1 Lymphocyte % 11.2 % Low 25-47 1 Monocyte % 6.0 % 0-7 1 Eosinophil % 1.4 % 0-6 1 Basophil % 1.0 % 0-2 1 Nucleated Red Blood Cells % 0 1 Comp Metabolic Panel 05/26/2017 Sodium 137 mmol/L Low 139-145 1 Potassium 4.6 mmol/L 3.5-5.0 1 Chloride 101 mmol/L 101-111 1 Co2 Carbon Dioxide 29 mmol/L 22-32 1 Anion Gap 7 mmol/L 2-11 1 Glucose 158 mg/dL High 70-100 1 Blood Urea Nitrogen 18 mg/dL 6-24 1 Creatinine 0.99 mg/dL 0.67-1.17 1 BUN/Creatinine Ratio 18.2 8-20 1 Calcium 9.1 mg/dL 8.6-10.3 1 Total Protein 6.2 g/dL Low 6.4-8.9 1 Albumin 3.3 g/dL 3.2-5.2 1 Globulin 2.9 g/dL 2-4 1 Albumin/Globulin Ratio 1.1 1-3 1 Total Bilirubin 0.40 mg/dL 0.2-1.0 1 Alkaline Phosphatase 57 U/L 34-104 1 Alt 15 U/L 7-52 1 Ast 10 U/L Low 13-39 1 Egfr Non- 75.6 >60 1 Egfr 97.3 >60 1, 4 Leukemia/Lymphoma Flow 05/10/2017 Path Interpretation 2-8 Marker TNP Path Interpret > 16 Marker TNP Path Interpret 9-15 Marker (SEE NOTE) 5 Plasma Cell Profliferative 05/10/2017 Plasma Cell Dis Res Insufficient Disorder Summary Plasma Cell Prolif Specimen Bone Marrow Plasma Cell Prolif Dis Source See Comment 6 Plasma Cell Referral Reason See Comment 7 Plasma Cell Prolif Dis Method See Comment 8 Plasma Cell Dis Interpretation See Comment 9 Plasma Cell Dis Disclaimer See Comment 10 Plasma Cell Dis Released By See Comment 11 CBC Auto Diff 05/10/2017 White Blood Count 10.3 10^3/uL 3.5-10.8 Red Blood Count 4.38 10^6/uL 4.0-5.4 Hemoglobin 12.6 g/dL Low 14.0-18.0 Hematocrit 38 % Low 42-52 Mean Corpuscular Volume 87 fL 80-94 Mean Corpuscular Hemoglobin 29 pg 27-31 Mean Corpuscular HGB Conc 33 g/dL 31-36 Red Cell Distribution Width 14 % 10.5-15 Platelet Count 363 10^3/uL 150-450 Mean Platelet Volume 7 um3 Low 7.4-10.4 Abs Neutrophils 8.2 10^3/uL High 1.5-7.7 Abs Lymphocytes 1.0 10^3/uL 1.0-4.8 Abs Monocytes 0.8 10^3/uL 0-0.8 Abs Eosinophils 0.1 10^3/uL 0-0.6 Abs Basophils 0.1 10^3/uL 0-0.2 Abs Nucleated RBC 0 10^3/uL Granulocyte % 79.5 % 38-83 Lymphocyte % 10.1 % Low 25-47 Monocyte % 8.2 % High 0-7 Eosinophil % 1.4 % 0-6 Basophil % 0.8 % 0-2 Nucleated Red Blood Cells % 0 Protein Electrophoresis 03/28/2017 Total Protein(Pep) 108 mg/24h <229 12 Urine (24HR) Urine Collection Duration 24 h Urine Volume 2150 mL Total Protein Concentration 5 mg/dL Albumin 100 % Impression 4.27 13 Laboratory test finding 03/24/2017 Erythrocyte Sed Rate 31 mm/Hr 0-40 14 C Reactive Protein 11.26 mg/L High < 5.00 15 Laboratory test finding 03/24/2017 PSA Screening 5.870 ng/mL High 0-4.0 16 Urine Protein Elctrophoresis (RDM) 03/24/2017 Albumin 24 % Alpha-1 Globulin 8 % Alpha-2 Globulin 18 % Beta Globulin 26 % Gamma Globulin 24 % Albumin/Globulin Ratio 0.31 % Impression See Comment 17 Total Protein(Pep) Urine 9 mg/dL 18 Protein Electrophoresis 03/24/2017 Total Protein(Pep) 6.8 g/dL 6.3 - 7.9 Albumin 3.2 g/dL 3.4-4.7 Alpha-1 Globulin 0.2 g/dL 0.1-0.3 Alpha-2 Globulin 1.1 g/dL 0.6-1.0 Beta Globulin 1.3 g/dL 0.7-1.2 Gamma Globulin 1.1 g/dL 0.6-1.6 Albumin/Globulin Ratio 0.87 Impression See Comment 19 [place]/Lambda Free Light Chains 03/24/2017 [place] Free Light Chain 4.27 mg/dL 20 Ser Lambda Free Light Chain 1.63 mg/dL 21 [place]/Lambda Free Light Chain 2.62 22 Laboratory test finding 02/15/2017 Creatine Kinase(CK) 87 U/L 10-223 23 Erythrocyte Sed Rate 58 mm/Hr High 0-40 24 C Reactive Protein 24.72 mg/L High < 5.00 25 Anca AB Ser If 02/15/2017 C-Anca Negative Negative P-Anca Negative Negative 26 Hla B27 02/15/2017 Hla B27 Negative 27 Hla B27 Interp See Comment 28 Laboratory test finding 02/15/2017 Angiotensin Converting Enzyme 20 U/L 8 - 53 29 Connective Tissue Panel 02/15/2017 Anti-Nuclear Antibody 0.4 U 30 Cyclic Citrullinated Peptide 20.0 U 31 Interpretation See Comment 32 Laboratory test finding 02/15/2017 Thyroperoxidase AB 0.36 IU/mL <9 33 T3 Free 2.60 pg/mL 2.5-3.9 34 Protein Electrophoresis 02/15/2017 Total Protein(Pep) 7.4 g/dL 6.3 - 7.9 Albumin 3.3 g/dL 3.4-4.7 Alpha-1 Globulin 0.3 g/dL 0.1-0.3 Alpha-2 Globulin 1.2 g/dL 0.6-1.0 Beta Globulin 1.4 g/dL 0.7-1.2 Gamma Globulin 1.3 g/dL 0.6-1.6 Albumin/Globulin Ratio 0.81 Impression See Comment 35 Immunofixation See Comment 36 Laboratory test finding 02/15/2017 Ferritin 32.5 ng/mL 24-336 37 Iron & Iron Binding Capacity 02/15/2017 Iron 24 g/dL Low 50-212 Unsaturated Iron Binding 372 g/dL Total Iron Binding Capacity 396 g/dL 250-450 % Iron Saturation 6 % Low 15-55 Laboratory test finding 01/18/2017 Erythrocyte Sed Rate 34 mm/Hr 0-40 C Reactive Protein 10.96 mg/L High < 5.00 38 Rheumatoid Factor <15 IU/mL <15 39 Uric Acid 6.6 mg/dL 4.4-7.6 Lyme Disease Serology Negative Negative 40 Laboratory test finding 12/09/2016 Cytology Non-Truck Cleaner SEE RESULT BELOW 41 Lipid Profile (Trig/Chol/HDL) 12/02/2016 Triglycerides 60 mg/dL 42 Cholesterol 245 mg/dL 43 HDL Cholesterol 53.9 mg/dL 44 LDL Cholesterol 179 mg/dL 45 Laboratory test finding 12/02/2016 Creatine Kinase(CK) 140 U/L 10- 46 Hepatitis C Antibody Nonreactive Nonreactive 47 PSA Screening 5.148 ng/mL High 0-4.0 48 Liver Function Panel 12/02/2016 Total Protein 6.5 g/dL 6.4-8.9 Albumin 3.6 g/dL 3.2-5.2 Globulin 2.9 g/dL 2-4 Albumin/Globulin Ratio 1.2 1-3 Total Bilirubin 0.50 mg/dL 0.2-1.0 Direct Bilirubin 0.10 mg/dL 0.03-0.18 Indirect Bilirubin 0.4 mg/dL 0.3-1.0 Alkaline Phosphatase 62 U/L 34-104 Alt 14 U/L 7-52 Ast 13 U/L 13-39 Laboratory test finding 12/02/2016 Vitamin B12 360 pg/mL 180-914 49 Urinalysis Profile 10/19/2016 Urine Color Straw Urine Appearance Clear Urine Specific [place] 1.006 Low 1.010-1.030 Urine pH 7.0 5-9 Urine Urobilinogen Negative Negative Urine Ketones Negative Negative Urine Protein Negative Negative Urine Leukocytes Negative Negative Urine Blood Negative Negative Urine Nitrite Negative Negative Urine Bilirubin Negative Negative Urine Glucose Negative Negative CBC Auto Diff 10/19/2016 White Blood Count 7.2 10^3/uL 3.5-10.8 Red Blood Count 4.64 10^6/uL 4.0-5.4 Hemoglobin 14.5 g/dL 14.0-18.0 Hematocrit 42 % 42-52 Mean Corpuscular Volume 91 fL 80-94 Mean Corpuscular Hemoglobin 31 pg 27-31 Mean Corpuscular HGB Conc 34 g/dL 31-36 Red Cell Distribution Width 13 % 10.5-15 Platelet Count 287 10^3/uL 150-450 Mean Platelet Volume 8 um3 7.4-10.4 Abs Neutrophils 5.3 10^3/uL 1.5-7.7 Abs Lymphocytes 1.3 10^3/uL 1.0-4.8 Abs Monocytes 0.4 10^3/uL 0-0.8 Abs Eosinophils 0 10^3/uL 0-0.6 Abs Basophils 0.1 10^3/uL 0-0.2 Abs Nucleated RBC 0 10^3/uL Granulocyte % 74.5 % 38-83 Lymphocyte % 17.5 % Low 25-47 Monocyte % 5.9 % 1-9 Eosinophil % 0.7 % 0-6 Basophil % 1.4 % 0-2 Nucleated Red Blood Cells % 0 Laboratory test finding 10/19/2016 Magnesium 2.0 mg/dL 1.9-2.7 TSH (Thyroid Stim Horm) 1.17 mcIU/mL 0.34-5.60 Erythrocyte Sed Rate 27 mm/Hr 0-40 Lyme Disease Serology Negative Negative 50 Comp Metabolic Panel 10/19/2016 Sodium 135 mmol/L 133-145 Potassium 4.1 mmol/L 3.5-5.0 Chloride 102 mmol/L 101-111 Co2 Carbon Dioxide 26 mmol/L 22-32 Anion Gap 7 mmol/L 2-11 Glucose 109 mg/dL High 70-100 Blood Urea Nitrogen 15 mg/dL 6-24 Creatinine 0.95 mg/dL 0.67-1.17 BUN/Creatinine Ratio 15.8 8-20 Calcium 9.7 mg/dL 8.6-10.3 Total Protein 6.9 g/dL 6.4-8.9 Albumin 3.7 g/dL 3.2-5.2 Globulin 3.2 g/dL 2-4 Albumin/Globulin Ratio 1.2 1-3 Total Bilirubin 0.50 mg/dL 0.2-1.0 Alkaline Phosphatase 60 U/L 34-104 Alt 17 U/L 7-52 Ast 16 U/L 13-39 Egfr Non- 79.3 >60 Egfr 102.0 >60 51 Laboratory test finding 10/19/2016 Lactic Acid 0.9 mmol/L 0.5-2.0 52 Troponin-I (TnI) 0.00 ng/mL <0.04 Inr/Protime 10/19/2016 Inr 0.99 0.89-1.11 Liver Function Panel 10/01/2016 Albumin 3.8 g/dL 3.2-5.2 Total Bilirubin 0.40 mg/dL 0.2-1.0 Direct Bilirubin 0.10 mg/dL 0.03-0.18 Indirect Bilirubin 0.3 mg/dL 0.3-1.0 Alkaline Phosphatase 57 U/L 34-104 Alt 19 U/L 7-52 Ast 20 U/L 13-39 Total Protein 6.7 g/dL 6.4-8.9 Globulin 2.9 g/dL 2-4 Albumin/Globulin Ratio 1.3 1-3 Laboratory test 10/01/2016 Creatine Kinase(CK) 325 U/L High 10-223 finding Inr/Protime 09/26/2015 Inr 1.12 High 0.89-1.11 Laboratory test 09/26/2015 Partial Thrombo Time 32.5 seconds 26.0-36.3 finding PTT Urinalysis Profile 09/26/2015 Urine Color Yellow Urine Appearance Clear Urine Specific [place] 1.027 1.010-1.030 Urine pH 5.0 5-9 Urine Urobilinogen Negative Negative Urine Ketones Negative Negative Urine Protein Negative Negative Urine Leukocytes Negative Negative Urine Blood Negative Negative Urine Nitrite Negative Negative Urine Bilirubin Negative Negative Urine Glucose Negative Negative Comp Metabolic Panel 09/26/2015 Sodium 138 mmol/L 133-145 Potassium 4.2 mmol/L 3.5-5.0 Chloride 104 mmol/L 101-111 Co2 Carbon Dioxide 24 mmol/L 22-32 Anion Gap 10 mmol/L 2-11 Glucose 86 mg/dL 70-100 Blood Urea Nitrogen 28 mg/dL High 6-24 Creatinine 1.14 mg/dL 0.67-1.17 BUN/Creatinine Ratio 24.6 High 8-20 Calcium 9.3 mg/dL 8.6-10.3 Total Protein 6.6 g/dL 6.4-8.9 Albumin 3.8 g/dL 3.2-5.2 Globulin 2.8 g/dL 2-4 Albumin/Globulin Ratio 1.4 1-3 Total Bilirubin 0.40 mg/dL 0.2-1.0 Alkaline Phosphatase 53 U/L 34-104 Alt 20 U/L 7-52 Ast 16 U/L 13-39 Egfr Non- 64.5 >60 Egfr 82.9 >60 53 Type & Screen 09/26/2015 Patient Blood Type O Positive Antibody Screen NEGATIVE Urine Culture And 09/26/2015 Urine Culture SEE RESULT BELOW 54 Sensitivities CBC No Diff 09/26/2015 White Blood Count 6.6 10^3/uL 3.5-10.8 Red Blood Count 4.77 10^6/uL 4.0-5.4 Hemoglobin 14.8 g/dL 14.0-18.0 Hematocrit 44 % 42-52 Mean Corpuscular Volume 92 fL 80-94 Mean Corpuscular Hemoglobin 31 pg 27-31 Mean Corpuscular HGB Conc 34 g/dL 31-36 Red Cell Distribution Width 13 % 10.5-15 Platelet Count 296 10^3/uL 150-450 Mean Platelet Volume 8 um3 7.4-10.4 1 Please check labs 2 days before follow up 2 Please check labs 2 days before follow up 3 Acute inflammation: >10.00 4 Because ethnic data is not always readily available, this report includes an eGFR for both -Americans and non- Americans. The National Kidney Disease Education Program (NKDEP) does not endorse the use of the MDRD equation for patients that are not between the ages of 18 and 70, are , have extremes of body size, muscle mass, or nutritional status, or are non- or non-. According to the National Kidney Foundation, irrespective of diagnosis, the stage of the disease is based on the level of kidney function: Stage Description GFR(mL/min/1.73 m(2)) 1 Kidney damage with normal or decreased GFR 90 2 Kidney damage with mild decrease in GFR 60-89 3 Moderate decrease in GFR 30-59 4 Severe decrease in GFR 15-29 5 Kidney failure <15 (or dialysis) 5 FINAL DIAGNOSIS: Specimen Source: Bone marrow Flow cytometry immunophenotypic analysis: No evidence of an immunophenotypically abnormal cell population. Interpretative data: Blasts: 1% of gated events Lymphocytes: 16% of gated events B-cells: 7% of lymphs; kappa:lambda within normal limits T-cells/NK cells: No aberrant population detected. Plasma cells: polyclonal Markers tested: CD3, CD10, CD16, CD19, CD34, CD45, kappa surface light chains, lambda surface light chains, 7-AAD, CD38, CD138, cytoplasmic kappa light chains, cytoplasmic lambda light chains. Quality Assessment: Acceptable Viability: Acceptable Viable lymphocytes (7-AAD): 95% Specimen received within validated guidelines. A Roberts-Giemsa stained slide prepared from the flow cytometry specimen was examined for quality purposes. Electronically signed by: Kamila Soriano MD 05/12/17 [id number] Technical component performed by: [place] [id number] Welfare Specialist: Connor Jacinto II, MD, PhD. 6 RESULT: Right posterior iliac crest 7 RESULT: monoclonal gammopathy 8 Locus and probes [Strategy;#Nuclei;Class] 1p36.3(TP73),1q22 [COPY#;50;LDT] 3CEN(D3Z1),7CEN(D7Z1) [COPY#;50;ASR] 8q24(5'MYC,3'MYC) [BAP;50;ASR] 9CEN(D9Z1),15CEN(D15Z4) [COPY#;50;ASR] 11q13(CCND1-XT),14q32(IGH-XT) [DFISH;50;ASR] 13q14(RB1),13q34(LAMP1) [COPY#;50;ASR] 14q32(3'IGH,5'IGH) [BAP;50;LDT] 17p13.1(TP53),17CEN(D17Z1) [COPY#;50;ASR] Probe strategies include: DFISH=dual color, double fusion; BAP=break-apart probe; COPY#=region gain and loss. 9 An insufficient number of plasma cells was available for this FISH test. This result does not exclude the presence of a plasma cell proliferative disorder. Clinical and pathologic correlation is recommended. 10 Applicable to Analyte Specific Reagent (ASR) and Laboratory Developed Tests (LDT). This test was developed and its performance characteristics determined by [facility] in a manner consistent with CLIA requirements. It has not been cleared or approved by the U.S. Food and Drug Administration. This FISH test does not rule out other chromosome abnormalities. 11 RESULT: Karen De Luna M.D. Test Performed by: [place] [address] 12 ADDITIONAL INFORMATION On 08/17/2016 the total protein assay method changed resulting in approximately a 15% increase in protein values. 13 RESULT: Albumin is the only protein detected. Test Performed by: [place] [address] 14 Please check labs in 3 weeks 15 Acute inflammation: >10.00 16 Serum levels of PSA measured using the [employer] [place] DXI Hybritech immunoassay should not be interpreted as absolute evidence of the presence or absence of disease. The PSA value should be used in conjunction with other pertinent clinical diagnostic procedures. The values obtained with different assay methods or kits cannot be used interchangeably. 17 RESULT: All fractions present, no apparent M-spike. 18 ADDITIONAL INFORMATION On 08/17/2016 the total protein assay method changed resulting in approximately a 15% increase in protein values. Test Performed by: [address] [id number] 19 RESULT: No apparent monoclonal protein on serum electrophoresis. Test Performed by: [address] [id number] 20 REFERENCE VALUE 0.3300-1.94 21 REFERENCE VALUE 0.5700-2.63 22 Elevated free light chain ratios between 1.66 and 3.00 may occur due to polyclonal hypergammaglobulinemia or impaired renal clearance. An isolated increased free light chain ratio in this range should be interpreted with caution, and clinical correlation is recommended. REFERENCE VALUE 0.2600-1.65 Test Performed by: [place] [address] 23 Please check labs today 24 Please check labs today 25 Acute inflammation: >10.00 26 Negative for cANCA and pANCA patterns by immunofluorescence. ADDITIONAL INFORMATION This test was developed and its performance characteristics determined by [facility] in a manner consistent with CLIA requirements. This test has not been cleared or approved by the U.S. Food and Drug Administration. Test Performed by: [facility] [place] [id number] 27 REFERENCE VALUE Not Applicable 28 RESULT: HLA-B27 antigen was not detected. ADDITIONAL INFORMATION Method: Flow Cytometry Performing Laboratory CLIA# [id number] Test Performed by: [place] [id number] Test Performed by: [address] [id number] 30 REFERENCE VALUE <=1.0 (Negative) 31 Interpretation: Weak Positive (20.0-39.9) REFERENCE VALUE <20.0 (Negative) 32 RESULT: Compatible with rheumatoid arthritis. Test Performed by: [address] [id number] 33 Please check labs today 34 Please check labs today 35 Small abnormality in gamma fraction. See Immunofixation. 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 Suggest repeat testing in 6-12 months if clinically indicated. Test Performed by: [address] [address] 37 Please check labs this week PLEASE NOTE THERE ARE TWO OPEN ORDERS FOR THIS PATIENT 38 Acute inflammation: >10.00 39 Test Performed by: [address] [id number] 40 Serologic response to B. burgdorferi infection is not detected, but cannot rule out early infection during which low or undetectable antibody levels to B. burgdorferi may be present. If clinically indicated, a new serum specimen should be submitted in 7-14 days. Test Performed by: [facility] [address] [place] [address] 41 SEE RESULT BELOW Name: SANTA COELHO : [address]: Emerson Portillo MD Acct: [id number] Unit: [id number] AGE: 66 Location: THYROID Re12/09/16 SEX: M Status: REG REF SPEC: [id number] NADEEM: 12/09/[address]: Emerson Portillo MD REQ: [id number] RECD: 12/09/16 STATUS: DANIEL GRACIA DR: Sami Echavarria MD _ ORDERED: FNA-IMG GUID BX, CYTO ADEQ-1ST P FINAL DIAGNOSIS Thyroid, right, Ultrasound guided, fine needle aspiration: Benign thyroid nodule-colloid/hyperplastic (Providence class II). The specimen demonstrates moderate watery colloid, a modest amount of benign appearing follicular epithelium arranged in uniform sheets, medium sized follicles and only occasional small groups. No features of papillary carcinoma are seen. In this clinical setting the risk of malignancy is less than 3%. Clinical management of this thyroid nodule should be based on clinical and radiographic features as well as the above. THYROID RIGHT - US GUIDED FINE NEEDLE ASPIRATION CLINICAL HISTORY Right mid nodule-2.8cm IMMEDIATE INTERPRETATION Pass 1-inadequate, pass 2-adequate CONTINUED ON NEXT PAGE * ML=Testing performed at Main Lab DEPARTMENT OF PATHOLOGY, [address] [place] [address] Rickey Caputo M.D. Director [facility] # [id number] RUN DATE: 12/09/16 [facility] LAB LIVE PAGE 2 Patient: S[place] [id number] (Continued) GROSS DESCRIPTION (Continued) GROSS DESCRIPTION 7- alcohol fixed slide(s) 2- passes Signed (signature on file) Kamila Soriano MD 1314 END OF REPORT * ML=Testing performed at Main Lab DEPARTMENT OF PATHOLOGY, [address] [place] [address] Rickey Caputo M.D. Director [facility] # [id number] 42 Desirable <150 Borderline high 150-199 High 200-499 Very High >500 43 Desirable <200 Borderline high 200-239 High >239 44 Low <40 Desirable: 40-60 High: >60 45 Desirable: <100 mg/dL Near Optimal: 100-129 mg/dL Borderline High: 130-159 mg/dL High: 160-189 mg/dL Very High: >189 mg/dL 46 FASTING 10 HOUR 47 FASTING 10 HOUR 48 Serum levels of PSA measured using the Shawna Retsly DXI Hybritech immunoassay should not be interpreted as absolute evidence of the presence or absence of disease. The PSA value should be used in conjunction with other pertinent clinical diagnostic procedures. The values obtained with different assay methods or kits cannot be used interchangeably. 49 Normal Range 180 to 914 Indeterminate Range 145 to 180 Deficient Range <145 50 Serologic response to B. burgdorferi infection is not detected, but cannot rule out early infection during which low or undetectable antibody levels to B. burgdorferi may be present. If clinically indicated, a new serum specimen should be submitted in 7-14 days. Test Performed by: [address] [address] 51 Because ethnic data is not always readily available, this report includes an eGFR for both -Americans and non- Americans. The National Kidney Disease Education Program (NKDEP) does not endorse the use of the MDRD equation for patients that are not between the ages of 18 and 70, are , have extremes of body size, muscle mass, or nutritional status, or are non- or non-. According to the National Kidney Foundation, irrespective of diagnosis, the stage of the disease is based on the level of kidney function: Stage Description GFR(mL/min/1.73 m(2)) 1 Kidney damage with normal or decreased GFR 90 2 Kidney damage with mild decrease in GFR 60-89 3 Moderate decrease in GFR 30-59 4 Severe decrease in GFR 15-29 5 Kidney failure <15 (or dialysis) [address] [facility] Severe Sepsis and Septic Shock Management Bundle Measure requires all lactic acids initially measuring >2.0 mmol/L be repeated. 53 Because ethnic data is not always readily available, this report includes an eGFR for both -Americans and non- Americans. The National Kidney Disease Education Program (NKDEP) does not endorse the use of the MDRD equation for patients that are not between the ages of 18 and 70, are , have extremes of body size, muscle mass, or nutritional status, or are non- or non-. According to the National Kidney Foundation, irrespective of diagnosis, the stage of the disease is based on the level of kidney function: Stage Description GFR(mL/min/1.73 m(2)) 1 Kidney damage with normal or decreased GFR 90 2 Kidney damage with mild decrease in GFR 60-89 3 Moderate decrease in GFR 30-59 4 Severe decrease in GFR 15-29 5 Kidney failure <15 (or dialysis) 54 SEE RESULT BELOW Name: S[place] : [address]: Kaylyn Trinidad MD Acct: [id number] Unit: [id number] AGE: 65 Location: [facility] Re09/26/15 SEX: M Status: REG REF SPEC: [id number] NADE[place]: 09/26/15-[address] [facility] [address]: Kaylyn Trinidad MD REQ: [id number] RECD: 09/26/15 STATUS: NELA GRACIA DR: Robinson Malone MD _ SOURCE: URINE SPDESC: ORDERED: Urine Culture Procedure Result Reported Site Urine Culture Final 09/28/15- 0847 ML No Growth (<1,000 CFU/mL) * ML - MAIN LAB (PSC1) . END OF REPORT * ML=Testing performed at Main Lab DEPARTMENT OF PATHOLOGY, [address] [place] [address] Rickey Caputo M.D. Director [facility] # [id number] Procedures Date CPT Code Description Status 12/02/2016 21687 Mobile Cardiovascular Telemetry Over 24 HR Up To 30 Completed Days 12/02/2016 82174 Mobile Cardiovascular Telemetry Over 24 HR Up To 30 Completed Days 10/20/2016 58375 ECHO Transthorasic Realtime 2D W Doppler & Color Completed Flow Hosp 01/25/2013 Colonoscopy Completed 01/09/2013 Colonoscopy Completed 10/06/2011 88963 Polysomnography Sleep Staging 4+ Parameters Completed Encounters Type Date Location Provider CPT E/M Dx Office Visit 04/21/2017 10:00a [facility] Internal Medicine Sami Stern, [address] M35.3 - [place] Jorge Pressley,FACP E78.2 D47.2 I10 Office Visit 04/14/2017 10:20a [facility] Garnett [address] M35.3 Franc Pressley R79.82 M79.1 D47.2 Z79.899 Z23 Office Visit 03/08/2017 8:15a [facility] Flor Alejo, [address] G47.33 Services Of Franc SCHNEIDER RN, UMBRELL[employer] TIPPER HAND- Office Visit 03/02/2017 4:20p [facility] Services Anibal Garnett M.D. 19805 M35.3 Of [facility] R79.82 M54.2 M79.1 D47.2 Office Visit 02/15/2017 3:00p [facility]ibal Garnett, [address] M79.1 [facility] Tahira.DFrancia M54.2 R79.82 R20.8 Office Visit 01/18/2017 2:20p [facility] Internal Medicine Sami Stern, [address] G47.00 - Whitley Pressley,FACP F32.9 Z86.73 E04.1 M16.11 I10 Office Visit 12/28/2016 1:00p [facility] Bunny Pierre, [address] G47.9 Services Of [facility] Tahira.Raven Z86.73 Z79.82 Office Visit 12/28/2016 8:00a Pul[facility]ology [place] [address] G47.33 Services Of [facility] G47.00 Office Visit 11/30/2016 11:40a [facility] Internal Medicine Sami Stern, [address] G45.9 - Whitley Pressley,FACP E04.1 R05 F32.9 Office Visit 11/12/2016 4:00p [facility] [place] [address] J01.90 Whitley Office Visit 11/08/2016 3:00p [facility] [place] [address] G47.00 [place] R06.02 R05 Z23 Office Visit 10/22/2016 2:40p [facility] Internal Medicine Sami Stern, [address] G45.9 - Meche Patel M.D.,FACP E78.5 G47.00 E04.1 Office Visit 10/20/2016 11:53a [facility] Bunny Pierre, [address] G45.8 M.Raven Office Visit 10/20/2016 3:56p [facility], Madhu [address] G45.9 Hospitalists CIPRIANO Menezes E78.00 Office Visit 10/19/2016 3:49p [facility], CIPRIANO Castrejon [address] G45.9 Hospitalists E78.00 Office Visit 10/19/2016 11:52a [facility] Bunny Wilson [address] G45.8 Huan Pierre Office Visit 10/01/2016 2:00p [facility] Internal Medicine - Sami Carbajal [address] Z00.01 [place] Jorge Stern M.D.,FACP M79.1 E78.5 G47.00 K30 Z23 Office Visit 09/15/2015 1:15p [facility] Kaylyn Triniadd M.D. 65110 M16.11 C.M.A. M25.551 Office Visit 07/04/2015 8:45a [facility]lyn Trinidad M.D. 47431 M16.11 C.M.A. M25.551 M16.0 Office Visit 06/02/2015 8:00a [facility] Kaylyn Trinidad M.D. 89157 M16.11 C.M.A. M16.12 M25.552 M25.551 M16.0 Office Visit 10/13/2011 11:26a [facility] Brandan Lozada [address] 327.23 Disorder [place] Huan 327.53 Office Visit 09/10/2011 12:31p [facility] Brandan Lozada [address] 786.09 Disorder Center Huan 327.01 780.54 Plan of Care Future Appointment(s):08/03/2017 11:00 am - Anibal Garnett M.D. at [facility]09/21/2017 1:00 pm - Sami Stern M.D.,FACP at [facility] Internal Medicine [address]06/30/2017 2:10 pm - Sami Stern M.D.,FACP at [facility] Internal Medicine - [address] 2:00 pm - Flor Alejo DNP, RN, [employer]- at [facility] Services Of [facility]06/02/2017 - Anibal Garnett M.D.M35.3 Polymyalgia vhadfsnjlyG44.2 Monoclonal hrpuwofogmD21.82 Elevated C- reactive protein (CRP)Z79.899 Other detention (current) drug therapyFollow up: Follow up in 6 weeks or sooner if needed
[2017-06-07 06:26] LABS: EGFR Non-African American 79.3 (>60)
[2017-06-07 06:51] VITALS: BP 125/78
--- NOTE | 2017-06-07 19:42 | ED ---
Deon Pino Rebecca, scribed for Gideon Abebe MD on 06/07/17 at 0527 . Upper Extremity Pain - HPI Summary HPI Summary: Pt is a 66 y/o M who presents to ED c/o LUE pain. Pt reports waking up at 0215 with left upper arm pain, described as feeling like "a Maciej horse in my triceps." Pain then radiated town the LUE into his fingers. Associated pain is currently moderate, ranked 6/10. Additionally c/o mild numbness. Denies neck pain, tingling, CP, SOB. Pt reports he typically stays active and lifts weights , the last time being yesterday. PMHx polymyalgia rheumatica that originally presented with iliopsoas tendonitis, then moved to the shoulders, intercostals and sternum, for which he takes 7.5 mg Prednisone. - History of Current Complaint Chief Complaint: EDExtremityUpper Stated Complaint: PAIN IN RT ARM Time Seen by Provider: 06/07/17 05:20 Hx Obtained From: Patient Onset/Duration: Still Present Severity Currently: Moderate - 6/10 Pain Location: Arm - left upper arm then radiatesdown the arm and into the hand Aggravating Factor(s): Nothing Alleviating Factor(s): Nothing Associated Signs & Symptoms: Positive: Numbness/Tingling - mild numbness - Allergies/Home Medications Allergies/Adverse Reactions: Allergies Allergy/AdvReac Type Severity Reaction Status Date / Time Sulfa (Sulfonamide Allergy Unknown Verified 06/07/17 06:11 Antibiotics) Reaction Details PMH/Surg Hx/FS Hx/Imm Hx Endocrine/Hematology History: Denies: Hx Diabetes, Hx Thyroid Disease, Hx Anemia Cardiovascular History: Reports: Hx Hypercholesterolemia Denies: Hx Hypertension, Hx Pacemaker/ICD Respiratory History: Denies: Hx Asthma, Hx Chronic Obstructive Pulmonary Disease (COPD), Other Respiratory Problems/Disorders GI History: Denies: Hx Jaundice, Hx Ulcer History: Reports: Hx Benign Prostatic Hyperplasia Musculoskeletal History: Reports: Hx Arthritis - back, hips, wrists Denies: Hx Osteoporosis Sensory History: Reports: Hx Contacts or Glasses Denies: Hx Hearing Aid Opthamlomology History: Reports: Hx Contacts or Glasses Neurological History: Reports: Other Neuro Impairments/Disorders - DEGENERATIVE DISC DISEASE Psychiatric History: Reports: Hx Anxiety Denies: Hx Panic Disorder - Surgical History Surgery Procedure, Year, and Place: carotid artery tumor removed - benign 1997. hernia repair Infectious Disease History: No Infectious Disease History: Denies: Hx Clostridium Difficile, Hx Hepatitis, Hx Human Immunodeficiency Virus (HIV), Hx of Known/Suspected MRSA, Hx Shingles, Hx Tuberculosis, Traveled Outside the [place] in Last 30 Days - Family History Known Family History: Positive: Cardiac Disease, Hypertension - mother, younger brother, Diabetes - maternal great grandmother - Social History Alcohol Use: Daily Alcohol Amount: daily wine Hx Substance Use: No Substance Use Type: Reports: None Hx Tobacco Use: No Smoking Status (MU): Former Smoker Have You Smoked in the Last Year: No Review of Systems Negative: Chest Pain Negative: Shortness Of Breath Positive: Other - LUE pain; NEGATIVE: Neck pain Neurological: Other - NEGATIVE: Tingling Positive: Numbness - mild All Other Systems Reviewed And Are Negative: Yes Physical Exam - Summary Physical Exam Summary: VITAL SIGNS: Reviewed. GENERAL: ~Patient is a well-developed and nourished male who is lying comfortable in the stretcher. Patient is not in any acute respiratory distress. HEAD AND FACE: No signs of trauma. No ecchymosis, hematomas or skull depressions. No sinus tenderness. EYES: PERRLA, EOMI x 2, No injected conjunctiva, no nystagmus. EARS: Hearing grossly intact. Ear canals and tympanic membranes are within normal limits. MOUTH: Oropharynx within normal limits. NECK: Supple, trachea is midline, no adenopathy, no JVD, no carotid bruit, no c- spine tenderness, neck with full ROM. CHEST: Symmetric, no tenderness at palpation LUNGS: Clear to auscultation bilaterally. No wheezing or crackles. CVS: Regular rate and rhythm, S1 and S2 present, no murmurs or gallops appreciated. ABDOMEN: Soft, non-tender. No signs of distention. No rebound no guarding, and no masses palpated. Bowel sounds are normal. EXTREMITIES: FROM in all major joints, no edema, no cyanosis or clubbing. NEURO: Alert and oriented x 3. No acute neurological deficits. Speech is normal and follows commands. SKIN: Dry and warm Triage Information Reviewed: Yes Vital Signs On Initial Exam: Initial Vitals Temp Pulse Resp BP Pulse Ox 97.8 F 76 18 167/95 97 06/07/17 05:06 06/07/17 05:06 06/07/17 05:06 06/07/17 05:06 06/07/17 05:06 Vital Signs Reviewed: Yes Diagnostics - Vital Signs Vital Signs Temp Pulse Resp BP Pulse Ox 06/07/17 05:06 97.8 F 76 18 167/95 97 - Laboratory Result Diagrams: 06/07/17 05:40 06/07/17 05:40 Lab Statement: Any lab studies that have been ordered have been reviewed, and results considered in the medical decision making process. - EKG 0532 Cardiac Rate: NL - [address] Segment: Non-Specific - in the inferior leads EKG Interpretation: First deg AV block Re-Evaluation - Re-Evaluation First Eval Re-Evaluation Time: 06:33 Change: Improved Comment: Pt is doing better. Explained that the pain could be muscular or a result of his PMR. 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 Course/Dx - Course Assessment/Plan: Pt is a 66 y/o M who presents to ED c/o upper left arm pain since waking up at 0215, described as feeling like "a Maciej horse in my triceps." Pain then radiated town the LUE into his fingers. Associated pain is currently moderate, ranked 6/10. Additionally c/o mild numbness. Denies neck pain, tingling, CP, SOB. Pt reports he typically stays active and lifts weights , the last time being yesterday. PMHx polymyalgia rheumatica. EKG reveals 1st degree AV block and non-specific T wave changes. Blood work was done. Troponin of 0.01. In the ED course, pt received Toradol and fluids which improved symptoms. Explained to the pt that the pain could be muscular or a result of his PMR. 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 Pt will be D/ C to home with Dx of left arm pain with a follow up with his hand printed circuit board assembler. He understands and agrees. Allergy noted. - Diagnoses Provider Diagnoses: Left arm pain Discharge - Sign-Out/Discharge Documenting (check all that apply): Discharge - Discharge - Discharge Plan Condition: Stable Disposition: HOME Patient Education Materials: Arm Pain (ED) Referrals: Sami Stern MD [Primary Care Provider] - Anibal Garntet MD [Medical Doctor] - 2 Days (Follow up with Dr. Garnett in 1-2 days. ) Additional Instructions: RETURN TO EMERGENCY DEPARTMENT FOR ANY NEW OR WORSENING SYMPTOMS The documentation as recorded by the Deon bruno Rebecca accurately reflects the service I personally performed and the decisions made by me, Gideon Abebe MD.
== END 2017-06-07 06:51 | disposition home or self-care (01) ==
LOC: ED 05:06
DX: M79.602 Pain in left arm (principal); Z87.891 Personal history of nicotine dependence; R20.0 Anesthesia of skin
CPT/HCPCS: 36415; 80053; 82550; 83735; 84484; 85025; 86140; 93005; 96374; 99283; J1885

== ENCOUNTER 2023-09-26 16:31 | Observation (INO) ==
[2023-09-26 17:06] LABS: ABS Basophils 0.1 10^3/uL (0.0-0.1); ABS Eosinophils 0.1 10^3/uL (0.0-0.5); ABS Lymphocytes 1.2 10^3/uL (1.0-4.8); ABS Monocytes 0.8 10^3/uL (0.0-1.1); ABS Neutrophils 11.3 10^3/uL (1.5-7.6); ABS Nucleated RBC 0.01 10^3/ul; Eosinophil % 0.5 %; Hematocrit 45.3 % (38-53); Hemoglobin 15.2 g/dL (13.2-16.3); Lymphocyte % 9.3 %; Mean Corpuscular Hemoglobin 31.8 pg (27-33); Mean Corpuscular Hgb Conc 33.5 g/dL (31-36); Mean Corpuscular Volume 94.9 fL (80-97); Mean Platelet Volume 8.3 fL (7.5-11.2); Nucleated Red Blood Cells % 0.1 %/100WBC (0.0-0.8); Platelet Count 223 10^3/uL (150-450); Red Blood Count 4.77 10^6/uL (4.06-5.63); Red Cell Distribution Width 13.3 % (12-17); White Blood Count 13.4 10^3/uL (3.6-10.2)
[2023-09-26 17:46] LABS: ALT 30 U/L (7-52); Albumin 4.2 g/dL (3.2-5.2); Albumin/Globulin Ratio 1.9 (1-3); Alkaline Phosphatase 58 U/L (35-149); Anion Gap 6 mmol/L (2-16); Blood Urea Nitrogen 18 mg/dL (6-24); CO2 Carbon Dioxide 27 mmol/L (22-32); Calcium 9.4 mg/dL (8.6-10.3); Chloride 102 mmol/L (101-111); Creatinine, Serum 0.98 mg/dL (0.67-1.17); Globulin 2.2 g/dL (2-4); Glucose 152 mg/dL (70-100); Lipase 27 U/L (11.0-82.0); Sodium 135 mmol/L (135-145); Total Bilirubin 1.2 mg/dL (0.2-1.0); Total Protein 6.4 g/dL (6.4-8.9); eGFR CKD-EPI 81.4 (>60)
[2023-09-26] MEDS: Iohexol 300 (CONTRAST) 10 ML SDV IV ONE (18:23)
[2023-09-26] MEDS ORDERED: Ondansetron 4 mg VIAL 2 MG/ML 2 ml VIAL IV PRN (20:31)
[2023-09-26] MEDS ORDERED: HYDROmorphone 0.5 MG/0.5 ML SYRINGE IV SLOW PU PRN (20:44)
[2023-09-26] MEDS: Piperacillin/Tazobac 3.375 BAG 3.375 GM/100 ML BAG IV ONE (20:45)
[2023-09-26 21:41] LABS: Urine Appearance Clear; Urine Bilirubin Negative (Negative); Urine Blood Negative (Negative); Urine Color Light-Yellow; Urine Glucose Negative (Negative); Urine Ketones Negative (Negative); Urine Nitrite Negative (Negative); Urine Protein Negative (Negative); Urine Urobilinogen Negative (Negative)
[2023-09-26] MEDS: D5W 1/2 NS KCl 20 meq 1000 ml 1,000 ML IV SCH (22:18)
[2023-09-26 23:09] LABS: Potassium Redraw 3.7 mmol/L (3.5-5.0)
[2023-09-27] MEDS: Piperacillin/Tazobac 3.375 BAG 3.375 GM/100 ML BAG IV SCH (01:36)
[2023-09-27 05:28] LABS: ABS Basophils 0.1 10^3/uL (0.0-0.1); ABS Eosinophils 0.1 10^3/uL (0.0-0.5); ABS Lymphocytes 1.4 10^3/uL (1.0-4.8); ABS Monocytes 0.7 10^3/uL (0.0-1.1); ABS Neutrophils 8.4 10^3/uL (1.5-7.6); Eosinophil % 1.3 %; Hematocrit 41.6 % (38-53); Hemoglobin 14.4 g/dL (13.2-16.3); Lymphocyte % 13.3 %; Mean Corpuscular Hemoglobin 32.8 pg (27-33); Mean Corpuscular Hgb Conc 34.5 g/dL (31-36); Mean Platelet Volume 8.3 fL (7.5-11.2); Platelet Count 188 10^3/uL (150-450); Red Blood Count 4.38 10^6/uL (4.06-5.63); Red Cell Distribution Width 13.2 % (12-17); White Blood Count 10.8 10^3/uL (3.6-10.2)
[2023-09-27 06:12] LABS: Calcium 8.6 mg/dL (8.6-10.3); Creatinine, Serum 1.03 mg/dL (0.67-1.17); Potassium 3.9 mmol/L (3.5-5.0); eGFR CKD-EPI 76.7 (>60)
[2023-09-27] MEDS ORDERED: Naloxone 0.4 mg VIAL 0.4 mg/ml 1 ml VIAL IV PRN (11:39)
[2023-09-27] MEDS ORDERED: HYDROmorphone 1 MG/1 ML SYRINGE IV PRN (11:39)
[2023-09-27] MEDS ORDERED: Rocuronium 50 mg VIAL 10 mg/ml 5 ml VIAL (50 mg) ONE (13:08)
[2023-09-27] MEDS ORDERED: fentaNYL 100 mcg/2 ml 50 MCG/ML VIAL ONE ×2 (13:08→15:45)
[2023-09-27] MEDS ORDERED: Midazolam 2 mg/2 ml VIAL 1 mg/ml 2 ml VIAL (2 mg) ONE (13:08)
[2023-09-27] MEDS ORDERED: Propofol 10 MG/ML 20 ML BTL ONE (13:09)
[2023-09-27] MEDS ORDERED: Ondansetron 4 mg VIAL 2 MG/ML 2 ml VIAL ONE (13:09)
[2023-09-27] MEDS ORDERED: Dexamethasone IV 4 MG/ML VIAL 1 ml VIAL ONE (13:09)
[2023-09-27] MEDS ORDERED: Lidocaine 2% PF 5 ML VIAL ONE (13:09)
[2023-09-27] MEDS ORDERED: Bupivacaine 0.25% EPI 200,000 30 ML SDV ONE (14:38)
[2023-09-27] MEDS ORDERED: Acetaminophen IV 1 GM/100ML 1,000 MG/100 ML BAG IV ONE (15:32)
[2023-09-27 18:06] VITALS: BP 124/91
== END 2023-09-27 17:45 | disposition home or self-care (01) ==
LOC: ED 16:31 → EDHOLD 16:31 → AA 09-27 11:47
PROVIDERS: ADMIT Surgery; ATTEND Surgery